=== PATIENT | female | born 1945 | race Caucasian/White ===

== ENCOUNTER 2017-06-14 14:51 | Emergency (ER) | payer MEDICARE | END 2017-06-14 16:20 | disposition home or self-care (01) | LOC: M ED 14:51 | DX: M25.512 Pain in left shoulder (principal); M19.012 Primary osteoarthritis, left shoulder; W22.8XXA Striking against or struck by other objects, initial encounter; Y92.009 Unspecified place in unspecified non-institutional (private) residence as the place of occurrence of the external cause; J44.9 Chronic obstructive pulmonary disease, unspecified; E03.9 Hypothyroidism, unspecified; M48.00 Spinal stenosis, site unspecified; F33.9 Major depressive disorder, recurrent, unspecified; Z79.899 Other long term (current) drug therapy; Z79.82 Long term (current) use of aspirin; Z98.890 Other specified postprocedural states | CPT/HCPCS: 73030 ==

== ENCOUNTER → 2017-11-23 | Outpatient (REF) | payer MEDICARE | LOC: M LAB REF 16:35 | DX: R30.0 Dysuria (principal) | CPT/HCPCS: 87186 ==

== ENCOUNTER → 2018-03-29 | Outpatient (REF) | payer MEDICARE | LOC: M LAB REF 16:20 | DX: R30.0 Dysuria (principal) | CPT/HCPCS: 87186 ==

== ENCOUNTER → 2018-06-19 | Outpatient (REF) | payer MEDICARE ==
[~2018-06-19] MED LIST: ACET500C4 PO; ALEV220C2 PO; ASPI325T25 PO; ESCI20TA PO; LEVO100T5 PO; PENN1SOL2 TD; ROSU5TAB4 PO; SPIR1CAP PO
[2018-06-19 20:11] LABS: PERCENT SATURATION 28.9 % (13.2-45.0)
== END ==
LOC: M LAB REF 17:35
PROVIDERS: ATTEND Internal Medicine
DX: D50.9 Iron deficiency anemia, unspecified (principal)

== ENCOUNTER 2019-01-01 17:31 | Emergency (ER) | payer MEDICARE ==
[~2019-01-01] VITALS: Ht 165.1 cm; Wt 84.5 kg
[~2019-01-01 17:31] MED LIST changes: +ACET1TAB55 PO; +AMLO25TA PO; +ASPI-255 PO; -ASPI325T25 PO; +B-12100010 PO; +FISH1000 PO; +LEVO88TA3 PO; +MULTCAP PO; +OYST1TAB PO; -ROSU5TAB4 PO; +ROSU5TAB5 PO; +VITA500C24 PO
[2019-01-01 18:41] LABS: BASO # 0.1 10^3/uL (0.0-0.2); BASO % 0.6 % (0.0-1.0); EOS # 0.2 10^3/uL (0.0-0.5); EOS % 2.2 % (0.0-3.0); HEMOGLOBIN 10.9 g/dl (12.0-15.5); LYMPH # 1.7 10^3/uL (1.5-5.0); LYMPH % 18.2 % (24.0-44.0); MEAN CORPUSCULAR HEMOGLOBIN 30.6 pg (27.0-33.0); MEAN CORPUSCULAR HGB CONC 32.1 g/dl (32.0-36.5); MEAN CORPUSCULAR VOLUME 95.5 fl (80.0-96.0); MONO # 0.7 10^3/uL (0.0-0.8); MONO % 7.3 % (0.0-5.0); NEUTROPHILS # 6.7 10^3/uL (1.5-8.5); NEUTROPHILS % 71.3 % (36.0-66.0); PLATELET COUNT, AUTOMATED 269 10^3/uL (150-450); RED BLOOD COUNT 3.56 10^6/uL (4.00-5.40); WHITE BLOOD COUNT 9.4 10^3/uL (4.0-10.0)
[2019-01-01 19:20] LABS: ALBUMIN 3.7 GM/DL (3.2-5.2); ALT/SGPT 16 U/L (12-78); BILIRUBIN,DIRECT < 0.1 MG/DL (0.0-0.2); BILIRUBIN,TOTAL 0.3 MG/DL (0.2-1.0); BLOOD UREA NITROGEN 27 MG/DL (7-18); CALCIUM LEVEL 9.2 MG/DL (8.8-10.2); CARBON DIOXIDE LEVEL 23 MEQ/L (21-32); CHLORIDE LEVEL 114 MEQ/L (98-107); CK-MB VALUE MASS 4.3 NG/ML (<3.6); CPK CREATINE PHOSPHOKINASE 106 U/L (26-192); CREATININE FOR GFR 1.15 MG/DL (0.55-1.30); FREE T4 1.04 NG/DL (0.76-1.46); GLOMERULAR FILTRATION RATE 49.2 (>39); GLUCOSE, FASTING 93 MG/DL (70-100); MB/CK RELATIVE INDEX 4.06 (< OR =4); POTASSIUM SERUM 3.6 MEQ/L (3.5-5.1); SODIUM LEVEL 143 MEQ/L (136-145); TOTAL PROTEIN 6.8 GM/DL (6.4-8.2); TROPONIN I < 0.02 NG/ML (< 0.10)
[2019-01-01 19:27] LABS: INR 1.14; PROTHROMBIN TIME 14.3 SECONDS (11.8-14.0)
[2019-01-01 19:28] LABS: PARTIAL THROMBOPLASTIN TIME 28.1 SECONDS (25.0-38.4)
--- NOTE | 2019-01-01 19:53 | REPVR ---
EXAM: CT Head Without Contrast EXAM DATE/TIME: 01/01/2019 7:25 PM CLINICAL HISTORY: 73 years old, female; Pain; Headache; Additional info: Fall, facial trauma TECHNIQUE: Imaging protocol: Computed tomography of the head without contrast. Radiation optimization: All CT scans at this facility use at least one of these dose optimization techniques: automated exposure control; mA and/or kV adjustment per patient size (includes targeted exams where dose is matched to clinical indication); or iterative reconstruction. COMPARISON: CT Head without contrast 09/17/2018 3:29 PM FINDINGS: Brain: No intracranial mass, mass effect or midline shift. No acute intracranial hemorrhage. No focal effacement of cortical sulci to indicate acute cortical infarct. Ventricles: Ventricles, cisterns and sulci are symmetrically prominent. Bones/joints: No calvarial fracture or destructive process. Sinuses: Imaged paranasal sinuses are clear. Mastoid air cells: Mastoid air cells are normally aerated. Orbits: Imaged orbits are unremarkable. Soft tissues: Mild asymmetric right forehead extracranial scalp swelling. IMPRESSION: Mild right forehead extracranial scalp swelling. No underlying acute intracranial abnormality. Electronically signed by: Benjamin Rose On 01/01/2019 19:53:24 PM
--- NOTE | 2019-01-01 19:55 | REPVR ---
EXAM: CT Cervical Spine Without Contrast EXAM DATE/TIME: 01/01/2019 7:25 PM CLINICAL HISTORY: 73 years old, female; Neck pain; Additional info: Fall, facial trauma TECHNIQUE: Imaging protocol: Computed tomography images of the cervical spine without contrast. Radiation optimization: All CT scans at this facility use at least one of these dose optimization techniques: automated exposure control; mA and/or kV adjustment per patient size (includes targeted exams where dose is matched to clinical indication); or iterative reconstruction. COMPARISON: CT Spine,cervical w/o contrast 10/01/2013 10:51 AM FINDINGS: Vertebrae: No traumatic segmental malalignment of cervical spine or craniocervical junction. Vertebral body height is maintained at all levels. No acute fracture. No destructive or blastic cervical spine osseous lesion. Discs/Spinal canal/Neural foramina: Intervertebral disc height is decreased at multiple levels, with typical degenerative pattern and associated endplate, articular pillar and uncovertebral spurs. No high-grade osseous spinal canal narrowing. Mild bilateral C3-4 and C5-6 osseous neural foraminal stenosis secondary to uncovertebral osteophytes Prevertebral Space: Prevertebral soft tissues demonstrate no asymmetry. Lungs: No concerning abnormality of the imaged lung apices. IMPRESSION: 1. No acute fracture or traumatic subluxation of the cervical spine. 2. Multilevel degenerative disc and articular pillar arthropathy. Electronically signed by: Benjamin Rose On 01/01/2019 19:55:17 PM
[2019-01-01] MEDS ORDERED: ADACEL/BOOSTRIX VACCINE (DIPHTH/PERTUSS/ACELL/TETANUS)0.5ML SYR (90715) IM ONE (20:00)
[2019-01-01] MEDS ORDERED: fentaNYL 100 MCG/2 ML INJECTION (J3010) IV ONE (20:00)
[2019-01-01] MEDS ORDERED: AMPICILLIN SOD/SULBACTAM SOD 3 GM in D5W MINI-BAG PLUS 100 ML IV ONE (20:00)
[2019-01-01] MEDS ORDERED: LIDOCAINE W/EPINEPHRINE 1% 20ML VIAL SC ONE (20:00)
--- NOTE | 2019-01-01 20:02 | REPVR ---
EXAM: CT Maxillofacial Without Contrast EXAM DATE/TIME: 01/01/2019 7:25 PM CLINICAL HISTORY: 73 years old, female; Injury or trauma; Fall; Initial encounter; Blunt trauma (contusions or hematomas); Lip/oral cavity; Upper; Additional info: Fall, facial trauma TECHNIQUE: Imaging protocol: Computed tomography images of the face without contrast. Radiation optimization: All CT scans at this facility use at least one of these dose optimization techniques: automated exposure control; mA and/or kV adjustment per patient size (includes targeted exams where dose is matched to clinical indication); or iterative reconstruction. COMPARISON: No relevant prior studies available. FINDINGS: Pre-maxillary soft tissue edema/hematoma is present. Mandible is intact and the TMJ's align normally. Maxilla, hard palate and pterygoid plates are intact. Zygomaticomaxillary complexes and zygomatic arches appear normal. Anterior displacement of the bases of the right and left central maxillary incisor is with question of subtle cortical fractures anteriorly. This is best seen on sagittal images. Paranasal sinuses show no acute fracture. Paranasal sinuses show no abnormal opacification. Mastoid air cells are normally aerated. No acute orbital fracture. Orbital soft tissues are unremarkable. No acute nasal bone or nasal septal fracture. Visualized skull base structures are unremarkable. Posterior nasopharynx soft tissues are symmetric. IMPRESSION: Premaxillary facial soft tissue swelling. Anterior displacement of the roots of the right and left maxillary central incisor is suggesting possible traumatic injury. No other evidence of acute facial fracture Electronically signed by: Benjamin Rose On 01/01/2019 20:01:45 PM
[2019-01-01 20:30] VITALS: BP 149/92
[2019-01-01] MEDS ORDERED: NON-325T5 PO (21:43)
[2019-01-01] MEDS ORDERED: AUGM875T28 PO (21:43)
[2019-01-01] MEDS ORDERED: PERI12LIQ PO (21:52)
--- NOTE | 2019-01-02 16:59 | ECGEPIP ---
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
== END 2019-01-01 22:36 | disposition home or self-care (01) ==
LOC: EDBD 17:31 → M ED 17:31
DX: S00.83XA Contusion of other part of head, initial encounter (principal); S01.511A Laceration without foreign body of lip, initial encounter; S02.5XXA Fracture of tooth (traumatic), initial encounter for closed fracture; W18.09XA Striking against other object with subsequent fall, initial encounter; R29.6 Repeated falls; Z79.899 Other long term (current) drug therapy; Z23 Encounter for immunization
CPT/HCPCS: 12001; 70450; 70486; 72125; 80048; 80076; 82550; 82553; 84439; 84443; 84484; 85025; 85610; 85730; 90471; 90715; 93005; 93041; 94760; 96365; 96366; 96375; 99285; J3010

== ENCOUNTER → 2019-10-31 | Outpatient (REF) | payer MEDICARE ==
[~2019-10-31] MED LIST changes: +AUGM875T28 PO; +NON-325T5 PO; +PERI12LIQ PO
== END ==
LOC: M LAB REF 17:29
PROVIDERS: ATTEND Internal Medicine
DX: R30.0 Dysuria (principal)

== ENCOUNTER → 2020-01-03 | Outpatient (REF) | payer MEDICARE ==
[2020-01-03 19:37] LABS: PERCENT SATURATION 21.7 % (13.2-45.0)
== END ==
LOC: M LAB REF 17:19
PROVIDERS: ATTEND Internal Medicine
DX: D50.9 Iron deficiency anemia, unspecified (principal)

== ENCOUNTER → 2020-06-09 | Outpatient (REF) | payer MEDICARE ==
[~2020-06-09] MED LIST changes: +ACET-838 PO; -ESCI20TA PO; +ESCI20TA16 PO; -NON-325T5 PO
== END ==
LOC: M LAB REF 16:24
PROVIDERS: ATTEND Internal Medicine
DX: R30.0 Dysuria (principal)

== ENCOUNTER → 2020-07-02 | Outpatient (REF) | payer MEDICARE ==
[2020-07-02 17:32] LABS: PERCENT SATURATION 22.6 % (13.2-45.0)
== END ==
LOC: M LAB REF 16:09
PROVIDERS: ATTEND Internal Medicine
DX: D50.9 Iron deficiency anemia, unspecified (principal)

== ENCOUNTER → 2020-09-18 | Outpatient (REF) | payer MEDICARE ==
[~2020-09-18] MED LIST changes: -ACET-838 PO; +ACET32TAB PO
== END ==
LOC: M LAB REF 16:33
PROVIDERS: ATTEND Internal Medicine
DX: N39.0 Urinary tract infection, site not specified (principal)

== ENCOUNTER → 2020-10-19 | Outpatient (REF) | payer MEDICARE ==
[2020-10-20 14:19] LABS: PERCENT SATURATION 13.7 % (13.2-45.0)
== END ==
LOC: M LAB REF 11:13
PROVIDERS: ATTEND Internal Medicine
DX: D50.9 Iron deficiency anemia, unspecified (principal)

== ENCOUNTER → 2020-10-28 | Outpatient (REF) | payer MEDICARE ==
[~2020-10-28] MED LIST changes: +ACET-910 PO; +ACET500C10 PO; +DAILTAB51 PO; +LEXA1TAB PO
== END ==
LOC: M LAB REF 16:59
PROVIDERS: ATTEND Internal Medicine
DX: M54.5 Low back pain (principal); N39.0 Urinary tract infection, site not specified

== ENCOUNTER 2020-10-30 15:15 | Inpatient (IN) | payer MEDICARE ==
[~2020-10-30] VITALS: Ht 165.1 cm; Wt 88.9 kg
[~2020-10-30 15:15] MED LIST changes: -ACET-910 PO; -ACET500C10 PO; -DAILTAB51 PO; -LEXA1TAB PO
[2020-10-30 16:26] LABS: BASO % 0.5 % (0.0-1.0); EOS # 0.2 10^3/uL (0.0-0.5); EOS % 2.9 % (0.0-3.0); HEMATOCRIT 32.3 % (36.0-47.0); HEMOGLOBIN 9.9 g/dl (12.0-15.5); LYMPH # 1.4 10^3/uL (1.5-5.0); LYMPH % 17.3 % (24.0-44.0); MEAN CORPUSCULAR HEMOGLOBIN 30.8 pg (27.0-33.0); MEAN CORPUSCULAR HGB CONC 30.7 g/dl (32.0-36.5); MEAN CORPUSCULAR VOLUME 100.6 fl (80.0-96.0); MONO # 0.8 10^3/uL (0.0-0.8); MONO % 9.2 % (2.0-8.0); NEUTROPHILS # 5.8 10^3/uL (1.5-8.5); NEUTROPHILS % 69.7 % (36.0-66.0); PLATELET COUNT, AUTOMATED 276 10^3/uL (150-450); RED BLOOD COUNT 3.21 10^6/uL (4.00-5.40); WHITE BLOOD COUNT 8.3 10^3/uL (4.0-10.0)
[2020-10-30 16:57] LABS: ALBUMIN 3.4 GM/DL (3.2-5.2); ALT/SGPT 14 U/L (12-78); BILIRUBIN,DIRECT < 0.1 MG/DL (0.0-0.2); BILIRUBIN,TOTAL 0.2 MG/DL (0.2-1.0); BLOOD UREA NITROGEN 21 MG/DL (7-18); CALCIUM LEVEL 8.4 MG/DL (8.8-10.2); CARBON DIOXIDE LEVEL 24 MEQ/L (21-32); CHLORIDE LEVEL 113 MEQ/L (98-107); CREATININE FOR GFR 1.16 MG/DL (0.55-1.30); GLOMERULAR FILTRATION RATE 48.5 (>39); GLUCOSE, FASTING 106 MG/DL (70-100); LIPASE 177 U/L (73-393); SODIUM LEVEL 141 MEQ/L (136-145); TOTAL PROTEIN 6.3 GM/DL (6.4-8.2)
[2020-10-30] MEDS ORDERED: CIPROFLOXACIN 500MG TABLET PO SCH (18:00)
--- NOTE | 2020-10-30 19:13 | REPVR ---
PROCEDURE INFORMATION: Exam: CT Abdomen And Pelvis Without Contrast Exam date and time: 10/30/2020 6:05 PM Age: 75 years old Clinical indication: Pain; Other: Low back; Additional info: Low back pain, hematuria-microscopic TECHNIQUE: Imaging protocol: Computed tomography of the abdomen and pelvis without contrast. Radiation optimization: All CT scans at this facility use at least one of these dose optimization techniques: automated exposure control; mA and/or kV adjustment per patient size (includes targeted exams where dose is matched to clinical indication); or iterative reconstruction. COMPARISON: CT Pelvis without contrast 04/03/2015 12:54 PM FINDINGS: Limitations: Absence of intravenous contrast limits evaluation of vascular and visceral structures. Lungs: Calcified probable granulomas are seen in the lungs. Liver: There are no focal liver lesions. Gallbladder and bile ducts: There is a 2 cm calcified gallstone. Pancreas: The pancreas is normal. Spleen: The spleen is unremarkable. Adrenal glands: The adrenal glands are unremarkable. Kidneys and ureters: The right kidney is unremarkable. There is a punctate calcification in left kidney which is likely arterial and an exophytic density measuring 8.2 mm which is poorly assessed. There is also a low dense possible parapelvic cyst. There is an irregular 4.2 mm calculus in the proximal left ureter just below the ureteropelvic junction without left hydronephrosis or perinephric stranding. Stomach and bowel: There is no evidence of intestinal obstruction. Appendix: No evidence of appendicitis. Intraperitoneal space: Unremarkable. No free air. No significant fluid collection. Vasculature: There is no evidence of an infrarenal abdominal aortic aneurysm. There is mild to moderate atherosclerotic calcification. Lymph nodes: Unremarkable. No enlarged lymph nodes. Urinary bladder: There is a minimal amount of radiodense material layering in the dependent portion of the urinary bladder which may be blood or calcifications. Reproductive: Unremarkable as visualized. Bones/joints: No acute fracture. Grade 1 anterior spondylolisthesis of L4 on L5 likely due to subluxation of the degenerated facet joints. This is a stable finding in comparison to the lumbar spine CT. Soft tissues: Unremarkable. IMPRESSION: 1. There is 1 large gallstone measuring 2 cm. 2. There is a 4.2 mm calculus in the proximal left ureter without associated hydronephrosis or perinephric stranding. There is an additional low dense region- parapelvic which may represent a cyst or other low-dense parenchymal lesion. An additional punctate calcification may be within the renal collecting system or arterial. There is an 8.2 mm poorly assessed exophytic lesion. These lesions could be further assessed by renal protocol CT or MRI. The hematuria is likely due to the calculus in the proximal left ureter. Electronically signed by: Andree Henry On 10/30/2020 19:12:49 PM
[2020-10-30] MEDS ORDERED: NS 500 ML IV ONE (19:55)
[2020-10-30] MEDS ORDERED: KETOROLAC 30 MG/ML 1ML VIAL IV ONE (19:55)
[2020-10-30] MEDS ORDERED: ONDANSETRON 4MG/2ML VIAL IV PRN (22:00)
[2020-10-30] MEDS ORDERED: ACET-910 PO (22:29)
[2020-10-30] MEDS ORDERED: ACET500C10 PO (22:29)
[2020-10-30] MEDS ORDERED: DAILTAB51 PO (22:29)
[2020-10-30] MEDS ORDERED: LEXA1TAB PO (22:29)
[2020-10-30] MEDS ORDERED: MORPHINE 2 MG/ML 1ML VIAL (J2270) IV PRN (23:00)
[2020-10-31 00:55] VITALS: BP 164/89
[2020-10-31] MEDS: NS 1,000 ML IV SCH ×2 (01:05→09:13)
--- NOTE | 2020-10-31 01:54 | HPEPDOC ---
[facility] Medical History & Physical Date of Admission Oct 30, 2020 Date of Service: Oct 30, 2020 Attending Physician: NOMI JOHNSTON MD MPH History and Physical CHIEF COMPLAINT: low back pain HISTORY OF PRESENT ILLNESS: Ms. Laughlin is a 75 year old female w/ history of multiple UTIs who was sent to the ED by her PCM for UA concerning for renal stone. Patient reports that 3 days ago she woke up with low back pain and urinary frequency which made her concerned for UTI or kidney infection. She was able to perform a UA with her PCM and was empirically started on Levaquin. She states that this morning she received a call from her PCMs office stating her UA was also concerning for renal stone as there was blood in the study. Patient has had prior history of nephrolithiasis. She has not experienced localizing flank pain or fevers/chills and she has no nausea, vomiting, or stool changes. Aside from increased urinary frequency she has also noticed a strong odor to her urine and generalized mal aise but she denies dysuria which is something she typically gets with her UTIS. ROS: A 10 point ROS was obtained and aside from positives noted above was unremarkable PAST MEDICAL PROBLEMS: Remote history of renal stones Recurrent UTIs Urinary incontinence Spinal stenosis Hypothyroidism Depression Hyperlipidemia COPD not currently on medications HTN Histoplasmosis ? 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 HEENT: AT/NC, dry mucosa NECK: supple HEART: RRR no M/R/G, no peripheral edema, DPP 2+ bilaterally LUNGS: CTAB ABDOMEN: soft, non tender, non distended, active bowel sounds : No CVA tenderness SKIN: warm, dry MSK: moving all extremities NEURO: AOx3, strength is 4/5 but symmetric, faint bobbing head tremor PSYCH: euthymic LABS: reviewed RADIOLOGY: CT abd/pelvis: IMPRESSION: 1. There is 1 large gallstone measuring 2 cm. 2. There is a 4.2 mm calculus in the proximal left ureter without associated hydronephrosis or perinephric stranding. There is an additional low dense region- parapelvic which may represent a cyst or other low-dense parenchymal lesion. An additional punctate calcification may be within the renal collecting system or arterial. There is an 8.2 mm poorly assessed exophytic lesion. These lesions could be further assessed by renal protocol CT or MRI. The hematuria is likely due to the calculus in the proximal left ureter. MICROBIOLOGY: Patient has prior urine cultures each demonstrating a different pathogen including e. coli, citrobacter, and staph epi. Urine culture pending ASSESSMENT: Ms. Laughlin is a 75 year old female with recurrent UTI and remote renal stone history presenting with 3 days of generalized low back pains and symptoms c/w her UTIs now with CT stone protocol showing 4.2mm left proximal ureteral calculus for which Urology will see patient and consider doing stone retrieval and stent placement in the morning. PLAN: # ureteral stone: Patients presentation without fevers or true flank pain is not fully c/w pyelonephritis, however she does have evidence of a UTI in the setting of ureteral stone. Urology was consulted and recommends admission with possible OR in the morning. Will treat UTI with Meds: Tamsulosin for MET Levaquin 250mg IV Q24 to start tomorrow as patient has already had Cipro Toradol PRN Zofran PRN Morphine PRN severe pain Follow urine culture results Touch bases with Urology in the morning NPO after midnight with maintenance fluids # HTN: Patient was moderately hypertensive in the ED with poorly controlled pain. Since providing adequate pain relief with Toradol, patients BP has improved. She is not currently on antihypertensives, but does have a remote history of HTN. Would consider starting her on maintenance BP medications following possible stenting/stone retrieval. Meds: Consider hydralazine PRN Manage pain # macrocytic anemia: Patient has chronic anemia which is at her baseline. Vitamin B 12 level obtained last week was WNL. Iron was slightly low. Will initiate iron supplement and obtain folate level to complete macrocytosis evaluation. Meds: Iron supplement daily # Chronic back pain: Patient has acute on chronic back pain, this is in the setting of ureteral stone. Will encourage mobilization and have requested physical therapy referral. Meds: None # Hypothyroidism: No active issues today, will continue home medication Meds: Synthroid # Depression: Euthymic, will continue Lexapro being mindful of potential for QT prolongation in the setting of Levaquin use. Meds: Lexapro QHS # HLD: No active issues, continue crestor Meds: Rosuvastatin # COPD history: Patient is not currently on breathing treatments but has no e/o exacerbation or bronchial irritation on exam. Unclear if Acetazolamide is used for her COPD. Patient is unclear on reason she takes Acetazolamide. Meds: Pulmonary toilet DISPO: med surg, obs DIET: NPO after MN DVT PROPHY: holding chemical prophy pending possible urological procedure DISCHARGE: pending improvement in pain CONSULTS: PT, Urology Vital Signs Vital Signs Date Time Temp Pulse Resp B/P (MAP) Pulse Ox O2 Delivery O2 Flow Rate FiO2 10/31/20 00:37 96.8 68 18 166/82 (110) 98 Room Air Laboratory Data Labs 24H Laboratory Tests 2 10/30/20 16:15: Immature Granulocyte % (Auto) 0.4, Neutrophils (%) (Auto) 69.7H, Lymphocytes (%) (Auto) 17.3L, Monocytes (%) (Auto) 9.2H, Eosinophils (%) (Auto) 2.9, Basophils (%) (Auto) 0.5, Neutrophils # (Auto) 5.8, Lymphocytes # (Auto) 1.4L, Monocytes # (Auto) 0.8, Eosinophils # (Auto) 0.2, Basophils # (Auto) 0.0, Nucleated Red Blood Cells % (auto) 0.0, Anion Gap 4L, Glomerular Filtration Rate 48.5, Calcium Level 8.4L, Total Bilirubin 0.2, Direct Bilirubin < 0.1, Aspartate Amino Transf (AST/SGOT) 18, Alanine Aminotransferase (ALT/SGPT) 14, Alkaline Phosphatase 58, Total Protein 6.3L, Albumin 3.4, Albumin/Globulin Ratio 1.2, Lipase 177 10/30/20 17:56: Urine Color YELLOW, Urine Appearance CLOUDYH, Urine pH 6.0, Urine Specific [place] 1.014, Urine Protein NEGATIVE, Urine Glucose (UA) NEGATIVE, Urine Ketones NEGATIVE, Urine Blood 3+H, Urine Nitrite NEGATIVE, Urine Bilirubin NEGATIVE, Urine Urobilinogen 0.2, Urine Leukocyte Esterase 1+H, Urine WBC (Auto) 21H, Urine RBC (Auto) TNTCH, Urine Hyaline Casts (Auto) 0, Urine Bacteria (Auto) NEGATIVE, Urine Squamous Epithelial Cells 4, Urine Mucus (Auto) SMALL, Urine Sperm (Auto) 10/30/20 22:14: Coronavirus (COVID-19)(PCR) NEGATIVE CBC/BMP Laboratory Tests 10/30/20 16:15 Microbiology Microbiology 10/30/20 Urine Culture, Received Pending Home Medications Scheduled Acetaminophen (Acetaminophen) 325 Mg Tablet, 650 MG PO QHS Acetazolamide (Acetazolamide ER) 500 Mg Capsule.er, 500 MG PO BID Ascorbic Acid (Vitamin C) 500 Mg Capsule, 500 MG PO DAILY Aspirin (Aspirin EC) 325 Mg Tabec, 325 MG PO DAILY Calcium Carbonate (Calcium) 500 Mg Tablet, 500 MG PO DAILY Escitalopram Oxalate (Lexapro) 10 Mg Tablet, 10 MG PO QHS Levothyroxine Sodium (Levothyroxine Sodium) 88 Mcg Tablet, 88 MCG PO DAILY Multivitamin (Daily [place]) 1 Each Tablet, 1 TAB PO DAILY [place]-3 Fatty Acids/Fish Oil (Fish Oil 1,000 mg Capsule) 1 Each Capsule, 1 CAP PO DAILY Rosuvastatin Calcium (Rosuvastatin Calcium) 5 Mg Tab, 5 MG PO QHS Scheduled PRN Acetaminophen (Acetaminophen) 325 Mg Tablet, 650 MG PO Q4-6HP PRN for PAIN Allergies Coded Allergies: No Known Allergies (Unverified , 09/17/18) A-FIB/CHADSVASC A-FIB History Current/History of A-Fib/PAF?: No Current PO Anticoag Therapy: No Age/Risk Factor Scoring CHADSVASC: CHADSVASC Response (Comments) Value Age Risk Factor Age >/= 75 years old 2 Gender Risk Factor Female 1 Hx of CHF No 0 Hx of HTN Yes 1 Hx of Stroke/TIA/or VTE No 0 Hx of Diabetes No 0 Hx of Vascular Disease No 0 Total 4 Treatment Treatment ordered: Holding Other Reason Anticoagulant not given: Recent/upcomin procedure NOMI JOHNSTON MD MPH Oct 31, 2020 01:54
[2020-10-31] MEDS: KETOROLAC 30 MG/ML 1ML VIAL IV PRN ×2 (02:44→09:11)
[2020-10-31] MEDS: ROSUVASTATIN 10 MG TAB (CRESTOR) PO SCH ×2 (02:46→21:31)
[2020-10-31] MEDS: ESCITALOPRAM OXALATE 10 MG TAB (LEXAPRO) PO SCH ×2 (02:47→21:31)
[2020-10-31] MEDS: acetaZOLAMIDE 500 MG ER CAP PO SCH ×3 (02:47→21:31)
[2020-10-31 06:00] VITALS: BP 161/78
[2020-10-31 07:26] LABS: HEMATOCRIT 29.2 % (36.0-47.0); MEAN CORPUSCULAR HEMOGLOBIN 30.8 pg (27.0-33.0); MEAN CORPUSCULAR HGB CONC 30.8 g/dl (32.0-36.5); PLATELET COUNT, AUTOMATED 245 10^3/uL (150-450); RED BLOOD COUNT 2.92 10^6/uL (4.00-5.40)
[2020-10-31 07:56] LABS: BLOOD UREA NITROGEN 20 MG/DL (7-18); CARBON DIOXIDE LEVEL 19 MEQ/L (21-32); CHLORIDE LEVEL 117 MEQ/L (98-107); CREATININE FOR GFR 1.11 MG/DL (0.55-1.30); GLUCOSE, FASTING 93 MG/DL (70-100); POTASSIUM SERUM 3.7 MEQ/L (3.5-5.1); SODIUM LEVEL 144 MEQ/L (136-145)
[2020-10-31] MEDS: LEVOTHYROXINE 88MCG TABLET (0.088 MG) PO SCH (09:11)
[2020-10-31] MEDS: TAMSULOSIN 0.4 MG CAP PO SCH (09:11)
[2020-10-31] MEDS: IRON POLYSAC (NIFEREX) 150 MG CAP PO SCH (09:11)
--- NOTE | 2020-10-31 13:20 | SMCUROLCON ---
Urology Consultation General Date of Consultation 10/31/20 Reason For Consultation This patient is seen for Nrphrolithisasis. History of Present Illness This is a 75 y/o F w/ a PMH significant for kidney stones (several years ago), spinal stenosis, hypothyroidism, depression, HL, COPD, and HTN, admitted for an obstructing L ureteral stone. The patient noted the acute onset of severe L lower back pain yesterday which prompted her to come to the ER. She denied nausea or vomiting. She denied fevers or chills. She denied dysuria. A noncontrast CT A/P done in the ER which I reviewed. It was notable for mild L hydronephrosis 2/2 an obstructing 3mm proximal ureteral stone. She notes that she she has been in the hospital she has felt much better. Her pain is controlled w/ toradol. Past Medical History Medical History see HPI Surgical Hstory Tonsillectomy Oophorectomy Medications Current Medications Current Medications Medications (Trade) Dose Ordered Sig/Paulina Route PRN Reason Start Time Stop Time Status Last Admin Dose Admin Acetazolamide (Diamox Sequels) 500 mg BID PO 10/30/20 21:00 10/31/20 09:11 Ciprofloxacin (Cipro) 500 mg BID@06,18 PO 10/30/20 18:00 10/31/20 01:28 DC 10/30/20 23:45 Escitalopram Oxalate (Lexapro) 10 mg QHS PO 10/30/20 21:00 10/31/20 02:47 Home Med (Med Rec Complete!) ASDIRECTED XX 10/30/20 22:35 10/30/20 22:35 DC Iron (Niferex) 150 mg DAILY PO 10/31/20 09:00 10/31/20 09:11 Ketorolac Tromethamine (ToRADol) 15 mg Q6H PRN IV PAIN LEVEL 1-6 10/30/20 22:00 11/04/20 21:59 10/31/20 09:11 Levofloxacin 250 mg/IV Miscellaneous Supplies 50 ml @ 50 mls/hr Q24H IV 10/31/20 21:00 Levothyroxine Sodium (Synthroid) 88 mcg DAILY PO 10/31/20 09:00 10/31/20 09:11 Morphine Sulfate (Morphine Sulfate Inj) 1 mg Q4H PRN IV PAIN LEVEL 7-10 10/30/20 23:00 Ondansetron HCl (ZOFRAN INJection) 4 mg Q6H PRN IV NAUSEA 10/30/20 22:00 Rosuvastatin Calcium (Crestor) 5 mg QHS PO 10/30/20 21:00 10/31/20 02:46 Sodium Chloride 1,000 ml @ 110 mls/hr Q9H6M IV 10/31/20 00:00 10/31/20 09:13 Tamsulosin HCl (Flomax) 0.4 mg DAILY PO 10/31/20 09:00 10/31/20 09:11 Allergies Allergies: Coded Allergies: No Known Allergies (Unverified , 09/17/18) Review of Systems Constitutional: Denies: Fever, Chills, Sweats, Weakness, Malaise Skin: Denies: Rash, Lesions, Breakdown, Nail Changes Pulmonary: Denies: Dyspnea Cardiovascular: Denies Chest Pain, Denies Palpitations Gastrointestinal: Denies: Nausea, Vomiting, Abdominal Pain Genitourinary: Denies: Dysuria, Frequency Musculoskeletal: Reports: Back Pain (left lower back) Neurological: Denies: Weakness, Numbness, Incoordination, Change in Speech Psych: Reports: Mood Normal; Denies: Anxiety, Depression Physical Examination General Exam: Alert, Cooperative, No Acute Distress Chest Exam: Normal air movement Heart Exam: Rate Normal Abdomen Exam: Soft; No: Tenderness Skin Exam: Nl turgor and temperature Neuro Exam: Normal Speech Psych Exam: Mental status NL, Mood NL Vital Signs/I&O Vital Signs Date Time Temp Pulse Resp B/P (MAP) Pulse Ox O2 Delivery O2 Flow Rate FiO2 10/31/20 06:00 97.3 70 19 161/78 (105) 96 Room Air I&O- Last 24 Hours up to 6 AM 10/31/20 06:00 Intake Total 500 ml Output Total 25 ml Balance 475 ml Laboratory Data 24H Labs Laboratory Tests 2 10/30/20 16:15: Immature Granulocyte % (Auto) 0.4, Neutrophils (%) (Auto) 69.7H, Lymphocytes (%) (Auto) 17.3L, Monocytes (%) (Auto) 9.2H, Eosinophils (%) (Auto) 2.9, Basophils (%) (Auto) 0.5, Neutrophils # (Auto) 5.8, Lymphocytes # (Auto) 1.4L, Monocytes # (Auto) 0.8, Eosinophils # (Auto) 0.2, Basophils # (Auto) 0.0, Nucleated Red Blood Cells % (auto) 0.0, Anion Gap 4L, Glomerular Filtration Rate 48.5, Calcium Level 8.4L, Total Bilirubin 0.2, Direct Bilirubin < 0.1, Aspartate Amino Transf (AST/SGOT) 18, Alanine Aminotransferase (ALT/SGPT) 14, Alkaline Phosphatase 58, Total Protein 6.3L, Albumin 3.4, Albumin/Globulin Ratio 1.2, Lipase 177 10/30/20 17:56: Urine Color YELLOW, Urine Appearance CLOUDYH, Urine pH 6.0, Urine Specific [place] 1.014, Urine Protein NEGATIVE, Urine Glucose (UA) NEGATIVE, Urine Ketones NEGATIVE, Urine Blood 3+H, Urine Nitrite NEGATIVE, Urine Bilirubin NEGATIVE, Urine Urobilinogen 0.2, Urine Leukocyte Esterase 1+H, Urine WBC (Auto) 21H, Urine RBC (Auto) TNTCH, Urine Hyaline Casts (Auto) 0, Urine Bacteria (Auto) NEGATIVE, Urine Squamous Epithelial Cells 4, Urine Mucus (Auto) SMALL, Urine Sperm (Auto) 10/30/20 22:14: Coronavirus (COVID-19)(PCR) NEGATIVE 10/31/20 07:10: Nucleated Red Blood Cells % (auto) 0.0, Anion Gap 8, Glomerular Filtration Rate 51.0, Calcium Level 8.0L, Magnesium Level 2.0 CBC/BMP Laboratory Tests 10/30/20 16:15 10/31/20 07:10 Microbiology Microbiology 10/30/20 Urine Culture - Final, Complete Assessment This is a 75 y/o F admitted for L flank pain from an obstructing 3mm proximal L ureteral stone. Her pain is controlled w/ toradol. Her urine culture is negative and there is no other sign of infection w/ a normal WBC and no fevers. Her Cr is at baseline at 1.1. I do not think she needs surgery at this time. I have recommended a trial of passage, which the patient is in agreement with. Plan - no plan for surgery at this time - patient may have a regular diet - she is ok for discharge from the urologic standpoint - recommend patient take flomax daily - patient instructed on the importance of hydrating well w/ water to help pass the stone - will have my office arrange a f/u appt so that she is seen w/i the next 2-3 wks PETEY ALVARADO MD Oct 31, 2020 13:20
[2020-10-31 14:00] VITALS: BP 166/86
[2020-10-31] MEDS ORDERED: LEVO250T12 PO (14:08)
[2020-10-31] MEDS ORDERED: OXYC1TAB23 PO (14:08)
[2020-10-31] MEDS ORDERED: FLOM0.4C39 PO (14:08)
--- NOTE | 2020-10-31 15:18 | IPNPDOC ---
Text Note Date of Service The patient was seen on 10/31/20. NOTE Subjective: Patient was seen and examined at bedside today. She reports her pain from her kidney stone is far better and improved than when she came in. He denies having any nausea or vomiting, blood in her urine, constipation. Objective: General: Patient is alert oriented x3 was sitting in chair, no apparent distress. Cardiac: S1 and S2 normal, regular rate and rhythm, no murmurs appreciated. Respiration: Bilateral clear breath sounds appreciated, no wheezes noted. Abdomen: Soft, no tenderness on palpation in all 4 quadrants. Positive bowel sounds. : No CVA tenderness bilaterally. Labs: Vitals: Temperature 97.3, HR 70, RR 19, BP 161/78, 96% on room air CBC: WBC 8, Hb 9, HCT 29.2, platelets 245. BMP: NA 144, K3.7, CL 117, HCO3 19, BUN 20, CR 1.11, glucose 93. Imaging: CT abdomen pelvis: Impression:1. There is 1 large gallstone measuring 2 cm. 2. There is a 4.2 mm calculus in the proximal left ureter without associated hydronephrosis or perinephric stranding. There is an additional low dense region- parapelvic which may represent a cyst or other low-dense parenchymal lesion. An additional punctate calcification may be within the renal collecting system or arterial. There is an 8.2 mm poorly assessed exophytic lesion. These lesions could be further assessed by renal protocol CT or MRI. The hematuria is likely due to the calculus in the proximal left ureter. Assessment: 75-year-old female with history of recurrent UTI and renal stones presented to the ED with 3-day history of low back pain and symptoms of UTI on further e valuation in the ED CT scan showed 4.2 mm left proximal ureteral calculus for which urology was consulted. Plan: Ureteral stone: Patient reports her pain is resolving with the medications. -Dr. Dickens on-call urologist did come and see her, given the stone is small and patient's resolution pain pointed towards that stone is not obstructed and the medical management can be continued for the stone to be passed. As per urology she does not need any procedure as the stone is not obstructed -We will continue her on tamsulosin. -She was started on Levaquin we will continue that. We will continue tramadol and Zofran as needed. We will give her percocet for severe pain as needed; DC Morphine Hypertension: -Patient had elevated blood pressure on presentation most likely due to the pain. -Will start Amlodipine Chronic back pain: -Patient has acute on chronic back pain. -Her acute pain is due to ureteral stone. -Pain management morphine and tramadol. Hypothyroidism: -We will continue home medication Synthyroid Depression: -We will continue home medication Lexapro. HDL: -We will continue statin. Disposition: -Patient is cleared medically to go home -ALC status VS,Fishbone, I+O VS, Fishbone, I+O Laboratory Tests 10/30/20 16:15 10/31/20 07:10 Vital Signs Date Time Temp Pulse Resp B/P (MAP) Pulse Ox O2 Delivery O2 Flow Rate FiO2 10/31/20 06:00 97.3 70 19 161/78 (105) 96 Room Air I&O- Last 24 Hours up to 6 AM 10/31/20 06:00 Intake Total 500 ml Output Total 25 ml Balance 475 ml GME ATTESTATION GME ATTESTATION My faculty preceptor for this patient encounter was physically present during the encounter and was fully available. All aspects of the patient interview, examination, medical decision making process, and medical care plan development were reviewed and approved by the faculty preceptor. The faculty preceptor is aware and concurs with the plan as stated in the body of this note and will attest to such by his/her cosignature. ATTENDING NOTE I, Purnima Henry, have independently examined this patient and performed my own physical exam, as well as reviewed the documentation and edited where necessary. I have discussed in detail with the resident / student the findings and plan of treatment as documented by the resident / student and edited their note. I agree with their findings and treatment plan and have edited their documentation. I will continue to follow the patient during this hospital stay. - Patient was seen and evaluated the bedside - Patient reported clinical improvement of her symptoms - Vitals are stable - Physical was unremarkable - Lab work did not reveal any leukocytosis or kidney injury - Case was discussed with urology; recommended that patient can be discharged home with Flomax and antibiotics - no intervention planned - However, physical therapy has recommended patient only go to rehabilitation on discharge - Patient will be transitioned inpatient status from observation - Since patient is medically cleared, she'll be transitioned to ALC status now CODE STATUS: - Patient has voiced that she would not want chest compressions, however, would want a trial of intubation if required - Patient is DNR with trial of intubation Tom Jacobs MD Oct 31, 2020 15:18 PURNIMA HENRY MD Oct 31, 2020 15:21
[2020-10-31] MEDS: LevoFLOXacin 250 MG TABLET PO SCH (16:51)
[2020-10-31] MEDS ORDERED: amLODIPine 5 MG TAB PO ONE (17:20)
[2020-10-31] MEDS ORDERED: PILL CUTTER 1 EACH XX PRN (20:20)
[2020-10-31] MEDS ORDERED: LevoFLOXacin IV 250 MG in IV 1 EA IV SCH (21:00)
[2020-10-31 22:00] VITALS: BP 162/71
[2020-11-01 06:00] VITALS: BP 152/82
[2020-11-01 06:17] LABS: HEMATOCRIT 28.9 % (36.0-47.0); HEMOGLOBIN 8.8 g/dl (12.0-15.5); MEAN CORPUSCULAR HGB CONC 30.4 g/dl (32.0-36.5); MEAN CORPUSCULAR VOLUME 101.8 fl (80.0-96.0); PLATELET COUNT, AUTOMATED 250 10^3/uL (150-450); RED BLOOD COUNT 2.84 10^6/uL (4.00-5.40); WHITE BLOOD COUNT 7.3 10^3/uL (4.0-10.0)
[2020-11-01 06:38] LABS: CALCIUM LEVEL 7.9 MG/DL (8.8-10.2); CREATININE FOR GFR 1.13 MG/DL (0.55-1.30); POTASSIUM SERUM 3.3 MEQ/L (3.5-5.1)
[2020-11-01] MEDS ORDERED: POTASSIUM CHLORIDE 10 MEQ SR TABLET PO ONE (07:15)
[2020-11-01] MEDS: acetaZOLAMIDE 500 MG ER CAP PO SCH ×2 (08:25→21:02)
[2020-11-01] MEDS: amLODIPine 5 MG TAB PO SCH (08:25)
[2020-11-01] MEDS: TAMSULOSIN 0.4 MG CAP PO SCH (08:25)
[2020-11-01] MEDS: IRON POLYSAC (NIFEREX) 150 MG CAP PO SCH (08:25)
[2020-11-01] MEDS: LEVOTHYROXINE 88MCG TABLET (0.088 MG) PO SCH (08:29)
[2020-11-01] MEDS: LevoFLOXacin 250 MG TABLET PO SCH (16:45)
[2020-11-01] MEDS: ROSUVASTATIN 10 MG TAB (CRESTOR) PO SCH (21:02)
[2020-11-01] MEDS: ESCITALOPRAM OXALATE 10 MG TAB (LEXAPRO) PO SCH (21:02)
[2020-11-02 06:00] VITALS: BP 144/65
[2020-11-02 06:03] LABS: HEMATOCRIT 28.3 % (36.0-47.0); HEMOGLOBIN 8.6 g/dl (12.0-15.5); MEAN CORPUSCULAR HEMOGLOBIN 30.9 pg (27.0-33.0); MEAN CORPUSCULAR HGB CONC 30.4 g/dl (32.0-36.5); MEAN CORPUSCULAR VOLUME 101.8 fl (80.0-96.0); PLATELET COUNT, AUTOMATED 248 10^3/uL (150-450); RED BLOOD COUNT 2.78 10^6/uL (4.00-5.40); WHITE BLOOD COUNT 6.6 10^3/uL (4.0-10.0)
[2020-11-02 06:23] LABS: CALCIUM LEVEL 7.6 MG/DL (8.8-10.2); CREATININE FOR GFR 1.04 MG/DL (0.55-1.30); POTASSIUM SERUM 3.8 MEQ/L (3.5-5.1)
[2020-11-02] MEDS: LEVOTHYROXINE 88MCG TABLET (0.088 MG) PO SCH (09:29)
[2020-11-02] MEDS: TAMSULOSIN 0.4 MG CAP PO SCH (09:29)
[2020-11-02] MEDS: amLODIPine 5 MG TAB PO SCH (09:30)
[2020-11-02] MEDS: acetaZOLAMIDE 500 MG ER CAP PO SCH ×2 (09:30→21:14)
[2020-11-02] MEDS: IRON POLYSAC (NIFEREX) 150 MG CAP PO SCH (09:30)
[2020-11-02] MEDS: SENOKOT S TAB PO PRN (09:33)
[2020-11-02 11:29] LABS: FOLATE > 24.0 NG/ML (>5.4)
[2020-11-02] MEDS: LevoFLOXacin 250 MG TABLET PO SCH (17:18)
[2020-11-02 20:29] VITALS: BP 187/79
[2020-11-02] MEDS: ROSUVASTATIN 10 MG TAB (CRESTOR) PO SCH (21:14)
[2020-11-02] MEDS: ESCITALOPRAM OXALATE 10 MG TAB (LEXAPRO) PO SCH (21:14)
[2020-11-03 05:58] VITALS: BP 148/68
[2020-11-03 06:00] LABS: HEMATOCRIT 28.7 % (36.0-47.0); HEMOGLOBIN 8.6 g/dl (12.0-15.5); MEAN CORPUSCULAR HEMOGLOBIN 30.8 pg (27.0-33.0); MEAN CORPUSCULAR VOLUME 102.9 fl (80.0-96.0); PLATELET COUNT, AUTOMATED 258 10^3/uL (150-450); RED BLOOD COUNT 2.79 10^6/uL (4.00-5.40); WHITE BLOOD COUNT 7.5 10^3/uL (4.0-10.0)
[2020-11-03 06:17] LABS: CALCIUM LEVEL 7.8 MG/DL (8.8-10.2); CREATININE FOR GFR 1.07 MG/DL (0.55-1.30); GLOMERULAR FILTRATION RATE 53.2 (>39); MAGNESIUM LEVEL 2.1 MG/DL (1.8-2.4); POTASSIUM SERUM 3.6 MEQ/L (3.5-5.1)
[2020-11-03] MEDS: amLODIPine 5 MG TAB PO SCH (09:18)
[2020-11-03] MEDS: TAMSULOSIN 0.4 MG CAP PO SCH (09:18)
[2020-11-03] MEDS: IRON POLYSAC (NIFEREX) 150 MG CAP PO SCH (09:18)
[2020-11-03] MEDS: acetaZOLAMIDE 500 MG ER CAP PO SCH ×2 (09:18→19:45)
[2020-11-03] MEDS: LEVOTHYROXINE 88MCG TABLET (0.088 MG) PO SCH (09:21)
[2020-11-03 14:00] VITALS: BP 159/66
[2020-11-03 15:51] VITALS: BP 173/78
[2020-11-03] MEDS: LevoFLOXacin 250 MG TABLET PO SCH (17:15)
[2020-11-03 17:22] VITALS: BP_SYST 165; BP_SYST 168; BP_DIAS 74
[2020-11-03] MEDS: ESCITALOPRAM OXALATE 10 MG TAB (LEXAPRO) PO SCH (19:45)
[2020-11-03] MEDS: ROSUVASTATIN 10 MG TAB (CRESTOR) PO SCH (19:45)
[2020-11-04 06:00] VITALS: BP 161/68
[2020-11-04 06:15] LABS: HEMOGLOBIN 8.2 g/dl (12.0-15.5); MEAN CORPUSCULAR HEMOGLOBIN 31.2 pg (27.0-33.0); MEAN CORPUSCULAR HGB CONC 30.4 g/dl (32.0-36.5); MEAN CORPUSCULAR VOLUME 102.7 fl (80.0-96.0); PLATELET COUNT, AUTOMATED 258 10^3/uL (150-450); RED BLOOD COUNT 2.63 10^6/uL (4.00-5.40); WHITE BLOOD COUNT 7.4 10^3/uL (4.0-10.0)
[2020-11-04 06:34] LABS: CALCIUM LEVEL 7.6 MG/DL (8.8-10.2); CREATININE FOR GFR 1.03 MG/DL (0.55-1.30); GLOMERULAR FILTRATION RATE 55.6 (>39); MAGNESIUM LEVEL 2.1 MG/DL (1.8-2.4); POTASSIUM SERUM 3.4 MEQ/L (3.5-5.1)
[2020-11-04] MEDS: acetaZOLAMIDE 500 MG ER CAP PO SCH ×2 (08:42→20:20)
[2020-11-04] MEDS: IRON POLYSAC (NIFEREX) 150 MG CAP PO SCH (08:42)
[2020-11-04] MEDS: SENOKOT S TAB PO PRN (08:42)
[2020-11-04] MEDS: LEVOTHYROXINE 88MCG TABLET (0.088 MG) PO SCH (08:42)
[2020-11-04] MEDS: TAMSULOSIN 0.4 MG CAP PO SCH (08:42)
[2020-11-04] MEDS: amLODIPine 5 MG TAB PO SCH (08:46)
[2020-11-04] MEDS: LevoFLOXacin 250 MG TABLET PO SCH (15:42)
[2020-11-04] MEDS: PERCOCET 5MG/325MG TAB PO PRN (20:20)
[2020-11-04] MEDS: ESCITALOPRAM OXALATE 10 MG TAB (LEXAPRO) PO SCH (20:20)
[2020-11-04] MEDS: ROSUVASTATIN 10 MG TAB (CRESTOR) PO SCH (20:20)
[2020-11-05 06:00] VITALS: BP 121/79
[2020-11-05 06:23] LABS: HEMATOCRIT 31.1 % (36.0-47.0); HEMOGLOBIN 9.4 g/dl (12.0-15.5); MEAN CORPUSCULAR HEMOGLOBIN 30.8 pg (27.0-33.0); MEAN CORPUSCULAR HGB CONC 30.2 g/dl (32.0-36.5); PLATELET COUNT, AUTOMATED 295 10^3/uL (150-450); RED BLOOD COUNT 3.05 10^6/uL (4.00-5.40); WHITE BLOOD COUNT 8.6 10^3/uL (4.0-10.0)
[2020-11-05 06:50] LABS: CALCIUM LEVEL 8.2 MG/DL (8.8-10.2); CREATININE FOR GFR 1.09 MG/DL (0.55-1.30); GLOMERULAR FILTRATION RATE 52.1 (>39); MAGNESIUM LEVEL 2.1 MG/DL (1.8-2.4); POTASSIUM SERUM 3.7 MEQ/L (3.5-5.1)
[2020-11-05] MEDS: TAMSULOSIN 0.4 MG CAP PO SCH (09:26)
[2020-11-05] MEDS: LEVOTHYROXINE 88MCG TABLET (0.088 MG) PO SCH (09:26)
[2020-11-05] MEDS: amLODIPine 5 MG TAB PO SCH (09:26)
[2020-11-05] MEDS: acetaZOLAMIDE 500 MG ER CAP PO SCH ×2 (09:26→20:23)
[2020-11-05] MEDS: IRON POLYSAC (NIFEREX) 150 MG CAP PO SCH (09:26)
[2020-11-05] MEDS: MOM 30ML SUSPENSION UDC PO PRN (10:59)
[2020-11-05] MEDS: SENOKOT S TAB PO PRN (10:59)
[2020-11-05] MEDS: PERCOCET 5MG/325MG TAB PO PRN (10:59)
[2020-11-05] MEDS: LevoFLOXacin 250 MG TABLET PO SCH (16:19)
[2020-11-05] MEDS: ESCITALOPRAM OXALATE 10 MG TAB (LEXAPRO) PO SCH (20:24)
[2020-11-05] MEDS: ROSUVASTATIN 10 MG TAB (CRESTOR) PO SCH (20:24)
[2020-11-06 06:00] VITALS: BP 138/79
[2020-11-06] MEDS: IRON POLYSAC (NIFEREX) 150 MG CAP PO SCH (09:29)
[2020-11-06] MEDS: amLODIPine 5 MG TAB PO SCH (09:29)
[2020-11-06] MEDS: acetaZOLAMIDE 500 MG ER CAP PO SCH ×2 (09:29→21:06)
[2020-11-06] MEDS: LEVOTHYROXINE 88MCG TABLET (0.088 MG) PO SCH (09:29)
[2020-11-06] MEDS: TAMSULOSIN 0.4 MG CAP PO SCH (09:29)
[2020-11-06] MEDS: SENOKOT S TAB PO PRN (09:31)
[2020-11-06] MEDS: MOM 30ML SUSPENSION UDC PO PRN (09:31)
[2020-11-06] MEDS: LevoFLOXacin 250 MG TABLET PO SCH (16:35)
[2020-11-06] MEDS: ESCITALOPRAM OXALATE 10 MG TAB (LEXAPRO) PO SCH (21:06)
[2020-11-06] MEDS: ROSUVASTATIN 10 MG TAB (CRESTOR) PO SCH (21:07)
[2020-11-06 22:00] VITALS: BP_SYST 126; BP_SYST 134; BP_DIAS 63; BP_DIAS 83
[2020-11-07 06:00] VITALS: BP 128/48
[2020-11-07] MEDS: IRON POLYSAC (NIFEREX) 150 MG CAP PO SCH (09:39)
[2020-11-07] MEDS: acetaZOLAMIDE 500 MG ER CAP PO SCH ×2 (09:39→21:05)
[2020-11-07] MEDS: TAMSULOSIN 0.4 MG CAP PO SCH (09:39)
[2020-11-07] MEDS: LEVOTHYROXINE 88MCG TABLET (0.088 MG) PO SCH (09:40)
[2020-11-07] MEDS: amLODIPine 5 MG TAB PO SCH (09:40)
[2020-11-07] MEDS: LevoFLOXacin 250 MG TABLET PO SCH (16:32)
[2020-11-07] MEDS: ESCITALOPRAM OXALATE 10 MG TAB (LEXAPRO) PO SCH (21:05)
[2020-11-07] MEDS: ROSUVASTATIN 10 MG TAB (CRESTOR) PO SCH (21:05)
[2020-11-07] MEDS: PERCOCET 5MG/325MG TAB PO PRN (21:06)
[2020-11-08 06:00] VITALS: BP 125/54
[2020-11-08] MEDS: LEVOTHYROXINE 88MCG TABLET (0.088 MG) PO SCH (08:54)
[2020-11-08] MEDS: IRON POLYSAC (NIFEREX) 150 MG CAP PO SCH (08:54)
[2020-11-08] MEDS: TAMSULOSIN 0.4 MG CAP PO SCH (08:54)
[2020-11-08] MEDS: acetaZOLAMIDE 500 MG ER CAP PO SCH ×2 (08:54→20:09)
[2020-11-08] MEDS: amLODIPine 5 MG TAB PO SCH (08:55)
[2020-11-08] MEDS: LevoFLOXacin 250 MG TABLET PO SCH (16:27)
[2020-11-08] MEDS: ROSUVASTATIN 10 MG TAB (CRESTOR) PO SCH (20:09)
[2020-11-08] MEDS: ESCITALOPRAM OXALATE 10 MG TAB (LEXAPRO) PO SCH (20:09)
[2020-11-09 06:00] VITALS: BP 128/61
[2020-11-09] MEDS: TAMSULOSIN 0.4 MG CAP PO SCH (08:28)
[2020-11-09] MEDS: acetaZOLAMIDE 500 MG ER CAP PO SCH ×2 (08:29→20:27)
[2020-11-09] MEDS: amLODIPine 5 MG TAB PO SCH (08:29)
[2020-11-09] MEDS: IRON POLYSAC (NIFEREX) 150 MG CAP PO SCH (08:29)
[2020-11-09] MEDS: LEVOTHYROXINE 88MCG TABLET (0.088 MG) PO SCH (08:34)
[2020-11-09] MEDS: LevoFLOXacin 250 MG TABLET PO SCH (16:48)
--- NOTE | 2020-11-09 18:07 | IPNPDOC ---
Text Note Date of Service The patient was seen on 11/09/20. NOTE Subjective: Patient was seen and examined at bedside today. No acute overnight events reported. No new medical complaints. Objective: PHYSICAL EXAMINATION: VITAL SIGNS: See below GENERAL APPEARANCE: NAD,sitting comfortably in chair HEENT: NC/AT, EOMI CARDIOVASCULAR: +S1S2, RRR LUNGS: CTA B/L ABDOMEN: soft, NT EXTREMITIES: no edema NEUROLOGICAL: no gross focal deficits PSYCHIATRIC: AAOx3 A/P: 75-year-old female with history of recurrent UTI and renal stones presented to the ED with 3-day history of low back pain and symptoms of UTI on further evaluation in the ED CT scan showed 4.2 mm left proximal ureteral calculus for which urology was consulted. #Ureteral stone/UTI - completed 10 day levaquin stable -We will continue her on tamsulosin. We will continue tramadol and Zofran as needed. We will give her percocet for severe pain as needed - urology c/s appreciated #Hypertension: -stable - continue amlodipine #Chronic back pain: -Patient has acute on chronic back pain. -Her acute pain is due to ureteral stone. -Pain management morphine and tramadol. #Hypothyroidism: -We will continue home medication Synthyroid #Depression: -We will continue home medication Lexapro. #HDL: -We will continue statin. Disposition: -pending placement VS,Fishbone, I+O VS, Fishbone, I+O Vital Signs Date Time Temp Pulse Resp B/P (MAP) Pulse Ox O2 Delivery O2 Flow Rate FiO2 11/09/20 08:29 67 144/69 11/08/20 06:00 98.9 18 95 Room Air I&O- Last 24 Hours up to 6 AM 11/09/20 06:00 Intake Total 690 ml Output Total 200 ml Balance 490 ml CHEY JOY MD Nov 09, 2020 18:07
[2020-11-09] MEDS: ESCITALOPRAM OXALATE 10 MG TAB (LEXAPRO) PO SCH (20:27)
[2020-11-09] MEDS: ROSUVASTATIN 10 MG TAB (CRESTOR) PO SCH (20:27)
[2020-11-09] MEDS ORDERED: ACETAMINOPHEN TAB 650MG DOSE (2X325MG) PO PRN (20:45)
[2020-11-10 06:00] VITALS: BP_SYST 125; BP_SYST 130; BP_DIAS 48; BP_DIAS 59
[2020-11-10 06:42] LABS: HEMATOCRIT 27.2 % (36.0-47.0); HEMOGLOBIN 8.3 g/dl (12.0-15.5); MEAN CORPUSCULAR HEMOGLOBIN 30.6 pg (27.0-33.0); MEAN CORPUSCULAR HGB CONC 30.5 g/dl (32.0-36.5); MEAN CORPUSCULAR VOLUME 100.4 fl (80.0-96.0); PLATELET COUNT, AUTOMATED 252 10^3/uL (150-450); RED BLOOD COUNT 2.71 10^6/uL (4.00-5.40); WHITE BLOOD COUNT 6.8 10^3/uL (4.0-10.0)
[2020-11-10 07:12] LABS: BLOOD UREA NITROGEN 20 MG/DL (7-18); CALCIUM LEVEL 7.8 MG/DL (8.8-10.2); CARBON DIOXIDE LEVEL 20 MEQ/L (21-32); CHLORIDE LEVEL 120 MEQ/L (98-107); CREATININE FOR GFR 0.95 MG/DL (0.55-1.30); GLOMERULAR FILTRATION RATE > 60.0 (>39); GLUCOSE, FASTING 83 MG/DL (70-100); POTASSIUM SERUM 3.4 MEQ/L (3.5-5.1); SODIUM LEVEL 148 MEQ/L (136-145)
[2020-11-10] MEDS ORDERED: POTASSIUM CHLORIDE 10 MEQ SR TABLET PO ONE (08:00)
[2020-11-10] MEDS: IRON POLYSAC (NIFEREX) 150 MG CAP PO SCH (08:16)
[2020-11-10] MEDS: TAMSULOSIN 0.4 MG CAP PO SCH (08:17)
[2020-11-10] MEDS: acetaZOLAMIDE 500 MG ER CAP PO SCH ×2 (08:17→21:49)
[2020-11-10] MEDS: LEVOTHYROXINE 88MCG TABLET (0.088 MG) PO SCH (08:17)
[2020-11-10] MEDS: amLODIPine 5 MG TAB PO SCH (08:20)
[2020-11-10] MEDS: ROSUVASTATIN 10 MG TAB (CRESTOR) PO SCH (21:49)
[2020-11-10] MEDS: ESCITALOPRAM OXALATE 10 MG TAB (LEXAPRO) PO SCH (21:49)
[2020-11-11 06:00] VITALS: BP 138/54
[2020-11-11] MEDS: TAMSULOSIN 0.4 MG CAP PO SCH (09:44)
[2020-11-11] MEDS: IRON POLYSAC (NIFEREX) 150 MG CAP PO SCH (09:44)
[2020-11-11] MEDS: acetaZOLAMIDE 500 MG ER CAP PO SCH (09:44)
[2020-11-11 09:47] VITALS: BP 141/64
[2020-11-11] MEDS: amLODIPine 5 MG TAB PO SCH (09:47)
--- NOTE | 2020-11-11 10:26 | DS.PDOC ---
Discharge Summary General Date of Admission Oct 30, 2020 at 15:16 Date of Discharge Nov 11, 2020 Specialist/[facility], Dr. Dickens Discharge Summary PROCEDURES PERFORMED DURING STAY: None ADMITTING DIAGNOSES: 1. UTI complicated by nephrolithiasis 2. Nephrolithiasis 3. Hypertension 4. Macrocytic anemia 5. Chronic back pain 6. Hypothyroidism 7. Depression 8. Hyperlipidemia 9. COPD DISCHARGE DIAGNOSES: 1. UTI complicated by nephrolithiasis 2. Nephrolithiasis 3. Hypertension 4. Macrocytic anemia 5. Chronic back pain 6. Hypothyroidism 7. Depression 8. Hyperlipidemia 9. COPD COMPLICATIONS/CHIEF COMPLAINT: Nephrolithiasis. HISTORY OF PRESENT ILLNESS: Copied from admitting attending's H&P " Ms. Laughlin is a 75 year old female w/ history of multiple UTIs who was sent to the ED by her PCM for UA concerning for renal stone. Patient reports that 3 days ago she woke up with low back pain and urinary frequency which made her concerned for UTI or kidney infection. She was able to perform a UA with her PCM and was empirically started on Levaquin. She states that this morning she received a call from her PCMs office stating her UA was also concerning for renal stone as there was blood in the study. Patient has had prior history of nephrolithiasis. She has not experienced localizing flank pain or fevers/chills and she has no nausea, vomiting, or stool changes. Aside from increased urinary frequency she has also noticed a strong odor to her urine and generalized malaise but she denies dysuria which is something she typically gets with her UTIS. " HOSPITAL COURSE: Urology evaluated the patient. The stone was 0.3mm. Recommended trial of passage with Flomax and hydration. Patient may follow up with urology outpatient. Patient did well and pain was controlled. Otherwise, UA suspicious for infection. Patient completed 10 days of levofloxacin. Urine culture has no growth of clinical significance. Patient has had no fever or leukocytosis. Patient was medially stabilized, but required rehabilitation. This morning, patient denies any chest pain or dyspnea. She has chronic low back pain, unchanged from prior. She feels ready for rehab. Patient will be discharged today. DISCHARGE MEDICATIONS: Please see below. ALLERGIES: Please see below. PHYSICAL EXAMINATION ON DISCHARGE: VITAL SIGNS: Please see below. GENERAL: Comfortable, in no apparent distress. HEENT: Sclera clear. NECK: Supple. RESPIRATORY: Lungs clear to auscultation bilaterally, no rales, wheeze or rhonchi. CARDIOVASCULAR: Regular rate and rhythm. ABDOMEN: Soft, nontender. Normal bowel sounds. PSYCHOLOGICAL: Normal mood and affect LABORATORY DATA: Please see below. IMAGING: Radiologist interpretation CT abd/pelvis without contrast 1. There is 1 large gallstone measuring 2 cm. 2. There is a 4.2 mm calculus in the proximal left ureter without associated hydronephrosis or perinephric stranding. There is an additional low dense region- parapelvic which may represent a cyst or other low-dense parenchymal lesion. An additional punctate calcification may be within the renal collecting system or arterial. There is an 8.2 mm poorly assessed exophytic lesion. These lesions could be further assessed by renal protocol CT or MRI. The hematuria is likely due to the calculus in the proximal left ureter. PROGNOSIS: Good ACTIVITY: As tolerated. DIET: 2gm sodium diet DISCHARGE PLAN: Discharge to [facility]. DISPOSITION: Discharge to [facility]. DISCHARGE INSTRUCTIONS: 1. Follow up with PCP in 1 week 2. Follow up with Urology in 1 week DISCHARGE CONDITION: Stable. Total time spent on discharge planning, discharge summary, and medication reconciliation: 45 minutes Vital Signs/I&Os Vital Signs Date Time Temp Pulse Resp B/P (MAP) Pulse Ox O2 Delivery O2 Flow Rate FiO2 11/11/20 09:47 68 141/64 11/11/20 06:00 97.4 18 97 Room Air I&O- Last 24 Hours up to 6 AM 11/11/20 06:00 Intake Total 630 ml Output Total 0 ml Balance 630 ml Discharge Medications Scheduled Acetazolamide (Acetazolamide ER) 500 Mg Capsule.er, 500 MG PO BID, (Reported) Ascorbic Acid (Vitamin C) 500 Mg Capsule, 500 MG PO DAILY, (Reported) Aspirin (Aspirin EC) 325 Mg Tabec, 325 MG PO DAILY, (Reported) Calcium Carbonate (Calcium) 500 Mg Tablet, 500 MG PO DAILY, (Reported) Escitalopram Oxalate (Lexapro) 10 Mg Tablet, 10 MG PO QHS, (Reported) Levothyroxine Sodium (Levothyroxine Sodium) 88 Mcg Tablet, 88 MCG PO DAILY, (Reported) Multivitamin (Daily [place]) 1 Each Tablet, 1 TAB PO DAILY, (Reported) [place]-3 Fatty Acids/Fish Oil (Fish Oil 1,000 mg Capsule) 1 Each Capsule, 1 CAP PO DAILY, (Reported) Rosuvastatin Calcium (Rosuvastatin Calcium) 5 Mg Tab, 5 MG PO QHS, (Reported) Tamsulosin HCl (Flomax) 0.4 Mg Capsule, 0.4 MG PO DAILY Scheduled PRN Acetaminophen (Acetaminophen) 325 Mg Tablet, 650 MG PO Q4-6HP PRN for PAIN, (Reported) Oxycodone HCl/Acetaminophen (Oxycodone-Acetaminophen 5-325) 1 Each Tablet, 1 TAB PO TIDP PRN for pain Allergies Coded Allergies: No Known Allergies (Unverified , 09/17/18) JACKIE NESS DO Nov 11, 2020 10:06
[2020-11-12] MEDS ORDERED: LEVOTHYROXINE 88MCG TABLET (0.088 MG) PO SCH (06:00)
== END 2020-11-11 12:00 | DRG 690 ==
LOC: EDBD 15:15 → M ED 15:15 → OBSVTOIN 15:16 → M ED INP 15:16 → ENRESERV 10-31 00:10 → M MSPAV 10-31 00:52
PROVIDERS: ADMIT General Practice; ATTEND Internal Medicine
DX: N13.6 Pyonephrosis (principal); I10 Essential (primary) hypertension; J44.9 Chronic obstructive pulmonary disease, unspecified; E78.5 Hyperlipidemia, unspecified; F32.9 Major depressive disorder, single episode, unspecified; M54.5 Low back pain; E03.9 Hypothyroidism, unspecified; Z79.82 Long term (current) use of aspirin; Z79.899 Other long term (current) drug therapy

== ENCOUNTER → 2020-11-12 | Outpatient (REF) ==
[~2020-11-12] MED LIST changes: +ACET-910 PO; +ACET500C10 PO; +DAILTAB51 PO; +FLOM0.4C39 PO; +LEVO250T12 PO; +LEXA1TAB PO; +OXYC1TAB23 PO
[2020-11-12 11:07] LABS: FREE T4 0.96 NG/DL (0.76-1.46); GLOMERULAR FILTRATION RATE 57.5 (>39); POTASSIUM SERUM 3.9 MEQ/L (3.5-5.1); THYROID STIMULATING HORMONE 10.4 uIU/ML (0.358-3.740)
== END ==
LOC: SKLAB2 12:21
PROVIDERS: ATTEND Neuromusculoskeletal Medicine & OMM
DX: E87.0 Hyperosmolality and hypernatremia (principal); E03.9 Hypothyroidism, unspecified

== ENCOUNTER → 2020-12-07 | Outpatient (REF) | payer MEDICARE, BC | LOC: M LAB REF 14:33 | PROVIDERS: ATTEND Internal Medicine | DX: R30.0 Dysuria (principal) ==

== ENCOUNTER → 2020-12-11 | Outpatient (REF) | payer MEDICARE, BC ==
[2020-12-11 17:42] LABS: PERCENT SATURATION 13.8 % (13.2-45.0)
== END ==
LOC: M LAB REF 16:26
PROVIDERS: ATTEND Internal Medicine
DX: D50.9 Iron deficiency anemia, unspecified (principal)

== ENCOUNTER → 2021-03-17 | Outpatient (REF) | payer MEDICARE, BC | LOC: M LAB REF 16:30 | PROVIDERS: ATTEND Internal Medicine | DX: R30.0 Dysuria (principal) ==

== ENCOUNTER → 2021-06-04 | Outpatient (REF) | payer MEDICARE, MEDICAID ==
[~2021-06-04] MED LIST changes: -LEVO250T12 PO; +LEVO250T3 PO
[2021-06-04 17:44] LABS: PERCENT SATURATION 21.8 % (13.2-45.0)
== END ==
LOC: M LAB REF 16:39
PROVIDERS: ATTEND Internal Medicine
DX: D50.9 Iron deficiency anemia, unspecified (principal)

== ENCOUNTER → 2021-06-17 | Outpatient (REF) | payer MEDICARE, MEDICAID | LOC: M LAB REF 16:08 | PROVIDERS: ATTEND Internal Medicine | DX: N39.0 Urinary tract infection, site not specified (principal) ==

== ENCOUNTER 2021-12-02 14:41 | Inpatient (IN) | payer MEDICAID, MEDICARE ==
[~2021-12-02] VITALS: Ht 162.6 cm; Wt 86.8 kg
[~2021-12-02 14:41] MED LIST changes: +LEVO1TAB38 PO; -LEVO250T3 PO
[2021-12-02 17:19] LABS: BASO % 0.6 % (0.0-1.0); EOS % 0.7 % (0.0-3.0); HEMATOCRIT 36.6 % (36.0-47.0); HEMOGLOBIN 11.4 g/dl (12.0-15.5); LYMPH # 0.4 10^3/uL (1.5-5.0); LYMPH % 8.2 % (24.0-44.0); MEAN CORPUSCULAR HEMOGLOBIN 30.2 pg (27.0-33.0); MEAN CORPUSCULAR HGB CONC 31.1 g/dl (32.0-36.5); MEAN CORPUSCULAR VOLUME 97.1 fl (80.0-96.0); MONO # 0.8 10^3/uL (0.0-0.8); MONO % 15.5 % (2.0-8.0); NEUTROPHILS % 74.6 % (36.0-66.0); PLATELET COUNT, AUTOMATED 180 10^3/uL (150-450); RED BLOOD COUNT 3.77 10^6/uL (4.00-5.40); WHITE BLOOD COUNT 5.3 10^3/uL (4.0-10.0)
[2021-12-02 17:56] LABS: ALBUMIN 3.4 GM/DL (3.2-5.2); ALT/SGPT 19 U/L (12-78); BILIRUBIN,DIRECT < 0.1 MG/DL (0.0-0.2); BILIRUBIN,TOTAL 0.2 MG/DL (0.2-1.0); BLOOD UREA NITROGEN 26 MG/DL (7-18); CALCIUM LEVEL 8.7 MG/DL (8.8-10.2); CARBON DIOXIDE LEVEL 21 MEQ/L (21-32); CHLORIDE LEVEL 117 MEQ/L (98-107); GLOMERULAR FILTRATION RATE 46.5 (>39); GLUCOSE, FASTING 90 MG/DL (70-100); POTASSIUM SERUM 3.7 MEQ/L (3.5-5.1); SODIUM LEVEL 145 MEQ/L (136-145); TOTAL PROTEIN 6.4 GM/DL (6.4-8.2)
[2021-12-02] MEDS ORDERED: HYDR-3363 PO (18:45)
[2021-12-02] MEDS ORDERED: EUTH100T PO (18:45)
[2021-12-02] MEDS ORDERED: ACETAMINOPHEN TAB 650MG DOSE (2X325MG) PO PRN (18:50)
[2021-12-02 20:02] LABS: INR 1.11; PROTHROMBIN TIME 14.7 SECONDS (12.7-14.5)
[2021-12-02 20:03] LABS: PARTIAL THROMBOPLASTIN TIME 28.1 SECONDS (25.9-37.0)
[2021-12-02] MEDS ORDERED: ISOVUE-370 76% 100ML VIAL As Ordered ONE (20:16)
[2021-12-02 20:33] LABS: C REACTIVE PROTEIN QUANTITATIV 0.99 MG/DL (0.00-0.30)
[2021-12-02] MEDS ORDERED: LORA-674 PO (20:44)
[2021-12-02] MEDS ORDERED: HOME MED LIST COMPLETE! XX SCH (20:45)
[2021-12-02] MEDS: NS 1,000 ML IV SCH (20:56)
[2021-12-02] MEDS ORDERED: LABETALOL 100MG/20ML VIAL IV STA (21:07)
[2021-12-02] MEDS ORDERED: GLUCOSE 4GM CHEW TABLET PO PRN (21:15)
[2021-12-02] MEDS ORDERED: GLUCAGON INJ 1MG VIAL SC PRN (21:15)
[2021-12-02] MEDS ORDERED: DEXTROSE 50% 50 ML SYRINGE IV PRN (21:15)
[2021-12-02 22:03] LABS: FREE T4 1.15 NG/DL (0.76-1.46); THYROID STIMULATING HORMONE 0.472 uIU/ML (0.358-3.740)
[2021-12-02 23:06] VITALS: BP 163/74
[2021-12-02] MEDS: ACETAMINOPHEN 650 MG SUPP PR PRN (23:14)
[2021-12-03] VITALS (9 sets, daily range): BP systolic 130–186; BP diastolic 61–84
[2021-12-03] MEDS ORDERED: KETOROLAC 30 MG/ML 1ML VIAL IV ONE (00:45)
[2021-12-03] MEDS: NS 1,000 ML IV SCH (04:11)
[2021-12-03 06:14] LABS: BASO % 0.6 % (0.0-1.0); EOS % 0.2 % (0.0-3.0); HEMATOCRIT 33.5 % (36.0-47.0); LYMPH # 0.8 10^3/uL (1.5-5.0); LYMPH % 15.6 % (24.0-44.0); MEAN CORPUSCULAR HGB CONC 29.9 g/dl (32.0-36.5); MEAN CORPUSCULAR VOLUME 103.7 fl (80.0-96.0); MONO % 18.5 % (2.0-8.0); NEUTROPHILS # 3.4 10^3/uL (1.5-8.5); NEUTROPHILS % 64.7 % (36.0-66.0); PLATELET COUNT, AUTOMATED 202 10^3/uL (150-450); RED BLOOD COUNT 3.23 10^6/uL (4.00-5.40); WHITE BLOOD COUNT 5.2 10^3/uL (4.0-10.0)
[2021-12-03 06:39] LABS: CALCIUM LEVEL 7.9 MG/DL (8.8-10.2); CREATININE FOR GFR 1.14 MG/DL (0.55-1.30); GLOMERULAR FILTRATION RATE 49.3 (>39); MAGNESIUM LEVEL 1.9 MG/DL (1.8-2.4); POTASSIUM SERUM 3.4 MEQ/L (3.5-5.1)
[2021-12-03] MEDS: KCL 20MEQ in NS 1000ML 1,000 ML IV SCH ×2 (07:39→13:47)
[2021-12-03] MEDS: LEVOTHYROXINE 100MCG (0.1MG) 5ML SDV PF (SOLUTION FORM) IV SCH (07:39)
[2021-12-03] MEDS: ENOXAPARIN 40MG/0.4ML SYRINGE (J1650 PER 10MG) SC SCH (07:40)
[2021-12-03] MEDS: ASCORBIC ACID 500 MG TAB PO SCH (10:44)
[2021-12-03] MEDS: ASPIRIN ENTERIC 325 MG TAB PO SCH (10:44)
[2021-12-03] MEDS: LABETALOL 100MG/20ML VIAL IV PRN (13:46)
[2021-12-03] MEDS: ACETAMINOPHEN 650 MG SUPP PR PRN ×2 (13:46→18:09)
[2021-12-03] MEDS ORDERED: ONDANSETRON 4MG 2ML VIAL IV ONE (14:30)
[2021-12-03 15:42] LABS: INR 1.11; PROTHROMBIN TIME 14.7 SECONDS (12.7-14.5)
[2021-12-03 15:43] LABS: PARTIAL THROMBOPLASTIN TIME 28.4 SECONDS (25.9-37.0)
[2021-12-03 15:46] LABS: D-DIMER QUANT 2179.48 ng/ml (<500)
[2021-12-03 16:01] LABS: ABG BASE EXCESS -11.1 (-2.0-2.0); ABG HCO3 14.5 MEQ/L (22.0-26.0); ABG O2 SATURATION 94.8 % (95.0-99.0); ABG PARTIAL PRESSURE CO2 31.7 mmHg (35.0-45.0); ABG PARTIAL PRESSURE O2 71.6 mmHg (75.0-100.0); ABG STANDARD HCO3 15.6 MEQ/L (22.0-26.0); ABG TOTAL CO2 15.5 MEQ/L (23.0-31.0); ABG pH (ARTERIAL) 7.279 UNITS (7.350-7.450)
[2021-12-03 16:08] LABS: ALBUMIN 2.8 GM/DL (3.2-5.2); ALT/SGPT 22 U/L (12-78); BILIRUBIN,DIRECT < 0.1 MG/DL (0.0-0.2); BILIRUBIN,TOTAL 0.3 MG/DL (0.2-1.0); FERRITIN 128 NG/ML (8-252); LDH LACTATE DEHYDROGENASE 426 U/L (84-246); TOTAL PROTEIN 5.8 GM/DL (6.4-8.2)
[2021-12-03] MEDS ORDERED: REMDESIVIR 200 MG in NS 250 ML IV ONE (17:00)
[2021-12-03] MEDS ORDERED: ACETAMINOPHEN 650 MG SUPP PR ONE (20:40)
[2021-12-03] MEDS ORDERED: PROHANCE 279.3MG/ML 15ML VIAL As Ordered ONE (21:51)
[2021-12-03] MEDS: ROSUVASTATIN 10 MG TAB (CRESTOR) PO SCH (22:47)
[2021-12-04] VITALS (19 sets, daily range): BP systolic 135–173; BP diastolic 63–79; O2SAT 94–97
[2021-12-04] MEDS: KCL 20MEQ in NS 1000ML 1,000 ML IV SCH (05:34)
[2021-12-04] MEDS: KCL 20MEQ IN D5/NS 1000ML 1,000 ML IV SCH ×2 (06:21→14:41)
[2021-12-04 07:30] LABS: BASO % 0.4 % (0.0-1.0); EOS % 0.2 % (0.0-3.0); HEMATOCRIT 32.1 % (36.0-47.0); HEMOGLOBIN 10.1 g/dl (12.0-15.5); MEAN CORPUSCULAR HEMOGLOBIN 30.8 pg (27.0-33.0); MEAN CORPUSCULAR HGB CONC 31.5 g/dl (32.0-36.5); MEAN CORPUSCULAR VOLUME 97.9 fl (80.0-96.0); MONO # 0.7 10^3/uL (0.0-0.8); MONO % 12.5 % (2.0-8.0); NEUTROPHILS # 3.8 10^3/uL (1.5-8.5); NEUTROPHILS % 68.7 % (36.0-66.0); PLATELET COUNT, AUTOMATED 148 10^3/uL (150-450); RED BLOOD COUNT 3.28 10^6/uL (4.00-5.40); WHITE BLOOD COUNT 5.5 10^3/uL (4.0-10.0)
[2021-12-04 08:27] LABS: BLOOD UREA NITROGEN 18 MG/DL (7-18); CALCIUM LEVEL 7.6 MG/DL (8.8-10.2); CARBON DIOXIDE LEVEL 16 MEQ/L (21-32); CHLORIDE LEVEL 121 MEQ/L (98-107); CREATININE FOR GFR 0.95 MG/DL (0.55-1.30); GLOMERULAR FILTRATION RATE > 60.0 (>39); GLUCOSE, FASTING 93 MG/DL (70-100); MAGNESIUM LEVEL 1.9 MG/DL (1.8-2.4); POTASSIUM SERUM 3.9 MEQ/L (3.5-5.1); SODIUM LEVEL 142 MEQ/L (136-145)
[2021-12-04] MEDS: LEVOTHYROXINE 100MCG (0.1MG) 5ML SDV PF (SOLUTION FORM) IV SCH (09:10)
[2021-12-04] MEDS: ASCORBIC ACID 500 MG TAB PO SCH (09:11)
[2021-12-04] MEDS: ENOXAPARIN 40MG/0.4ML SYRINGE (J1650 PER 10MG) SC SCH (09:11)
[2021-12-04] MEDS: ASPIRIN ENTERIC 325 MG TAB PO SCH (09:11)
[2021-12-04] MEDS: REMDESIVIR 100 MG in NS 250 ML IV SCH (16:40)
[2021-12-04] MEDS: LABETALOL 100MG/20ML VIAL IV PRN (16:40)
[2021-12-04] MEDS: ROSUVASTATIN 10 MG TAB (CRESTOR) PO SCH (21:53)
[2021-12-04] MEDS ORDERED: ONDANSETRON 4MG 2ML VIAL IV ONE (23:20)
[2021-12-05] VITALS (10 sets, daily range): BP systolic 152–195; BP diastolic 72–90; O2SAT 93–97
[2021-12-05] MEDS: KCL 20MEQ IN D5/NS 1000ML 1,000 ML IV SCH ×2 (00:34→08:54)
[2021-12-05 08:27] LABS: BASO % 0.3 % (0.0-1.0); EOS % 0.6 % (0.0-3.0); HEMATOCRIT 34.2 % (36.0-47.0); HEMOGLOBIN 10.9 g/dl (12.0-15.5); LYMPH # 0.9 10^3/uL (1.5-5.0); LYMPH % 26.3 % (24.0-44.0); MEAN CORPUSCULAR HEMOGLOBIN 30.1 pg (27.0-33.0); MEAN CORPUSCULAR HGB CONC 31.9 g/dl (32.0-36.5); MEAN CORPUSCULAR VOLUME 94.5 fl (80.0-96.0); MONO # 0.5 10^3/uL (0.0-0.8); MONO % 14.5 % (2.0-8.0); PLATELET COUNT, AUTOMATED 153 10^3/uL (150-450); RED BLOOD COUNT 3.62 10^6/uL (4.00-5.40); WHITE BLOOD COUNT 3.4 10^3/uL (4.0-10.0)
[2021-12-05] MEDS: ASPIRIN ENTERIC 325 MG TAB PO SCH (08:53)
[2021-12-05] MEDS: LEVOTHYROXINE 100MCG (0.1MG) 5ML SDV PF (SOLUTION FORM) IV SCH (08:53)
[2021-12-05] MEDS: ASCORBIC ACID 500 MG TAB PO SCH (08:53)
[2021-12-05] MEDS: ENOXAPARIN 40MG/0.4ML SYRINGE (J1650 PER 10MG) SC SCH (08:54)
[2021-12-05 09:05] LABS: BLOOD UREA NITROGEN 11 MG/DL (7-18); CALCIUM LEVEL 7.8 MG/DL (8.8-10.2); CARBON DIOXIDE LEVEL 17 MEQ/L (21-32); CHLORIDE LEVEL 121 MEQ/L (98-107); CREATININE FOR GFR 0.68 MG/DL (0.55-1.30); GLOMERULAR FILTRATION RATE > 60.0 (>39); GLUCOSE, FASTING 114 MG/DL (70-100); MAGNESIUM LEVEL 1.8 MG/DL (1.8-2.4); POTASSIUM SERUM 3.7 MEQ/L (3.5-5.1); SODIUM LEVEL 145 MEQ/L (136-145)
[2021-12-05] MEDS: acetaZOLAMIDE 500MG ER CAP PO SCH ×2 (14:00→20:05)
[2021-12-05] MEDS: REMDESIVIR 100 MG in NS 250 ML IV SCH (16:35)
[2021-12-05] MEDS: ROSUVASTATIN 10 MG TAB (CRESTOR) PO SCH (20:05)
[2021-12-05] MEDS: LABETALOL 100MG/20ML VIAL IV PRN (21:07)
[2021-12-06] VITALS: BP 155/75
[2021-12-06 05:21] VITALS: BP 179/85
[2021-12-06] MEDS: LABETALOL 100MG/20ML VIAL IV PRN (05:27)
[2021-12-06 06:17] LABS: BASO % 0.6 % (0.0-1.0); EOS # 0.1 10^3/uL (0.0-0.5); EOS % 3.7 % (0.0-3.0); HEMATOCRIT 33.3 % (36.0-47.0); HEMOGLOBIN 10.8 g/dl (12.0-15.5); LYMPH # 1.4 10^3/uL (1.5-5.0); LYMPH % 40.5 % (24.0-44.0); MEAN CORPUSCULAR HEMOGLOBIN 31.2 pg (27.0-33.0); MEAN CORPUSCULAR HGB CONC 32.4 g/dl (32.0-36.5); MEAN CORPUSCULAR VOLUME 96.2 fl (80.0-96.0); MONO # 0.5 10^3/uL (0.0-0.8); MONO % 13.1 % (2.0-8.0); NEUTROPHILS # 1.5 10^3/uL (1.5-8.5); NEUTROPHILS % 41.8 % (36.0-66.0); PLATELET COUNT, AUTOMATED 145 10^3/uL (150-450); RED BLOOD COUNT 3.46 10^6/uL (4.00-5.40); WHITE BLOOD COUNT 3.5 10^3/uL (4.0-10.0)
[2021-12-06 06:43] LABS: BLOOD UREA NITROGEN 12 MG/DL (7-18); CALCIUM LEVEL 8.1 MG/DL (8.8-10.2); CARBON DIOXIDE LEVEL 20 MEQ/L (21-32); CHLORIDE LEVEL 120 MEQ/L (98-107); CREATININE FOR GFR 0.76 MG/DL (0.55-1.30); GLOMERULAR FILTRATION RATE > 60.0 (>39); GLUCOSE, FASTING 92 MG/DL (70-100); MAGNESIUM LEVEL 1.8 MG/DL (1.8-2.4); POTASSIUM SERUM 3.4 MEQ/L (3.5-5.1); SODIUM LEVEL 144 MEQ/L (136-145)
[2021-12-06 07:43] VITALS: BP 138/82
[2021-12-06] MEDS ORDERED: LEVOTHYROXINE 100MCG TABLET (0.1MG) PO SCH (09:00)
[2021-12-06] MEDS: acetaZOLAMIDE 500MG ER CAP PO SCH ×2 (09:52→20:48)
[2021-12-06] MEDS: ENOXAPARIN 40MG/0.4ML SYRINGE (J1650 PER 10MG) SC SCH (09:52)
[2021-12-06] MEDS: ASPIRIN ENTERIC 325 MG TAB PO SCH (09:52)
[2021-12-06] MEDS: ASCORBIC ACID 500 MG TAB PO SCH (09:52)
[2021-12-06] MEDS: amLODIPine 5 MG TAB PO SCH (14:29)
[2021-12-06 15:00] VITALS: BP 177/81
[2021-12-06] MEDS: REMDESIVIR 100 MG in NS 250 ML IV SCH (16:33)
[2021-12-06] MEDS: ROSUVASTATIN 10 MG TAB (CRESTOR) PO SCH (20:48)
[2021-12-06] MEDS ORDERED: ONDANSETRON 4MG 2ML VIAL IV PRN (21:00)
[2021-12-07] MEDS: LEVOTHYROXINE 100MCG TABLET (0.1MG) PO SCH (06:14)
[2021-12-07 06:18] VITALS: BP 166/81
[2021-12-07] MEDS: acetaZOLAMIDE 500MG ER CAP PO SCH ×2 (10:07→20:48)
[2021-12-07] MEDS: ENOXAPARIN 40MG/0.4ML SYRINGE (J1650 PER 10MG) SC SCH (10:07)
[2021-12-07] MEDS: ASPIRIN ENTERIC 325 MG TAB PO SCH (10:07)
[2021-12-07] MEDS: ASCORBIC ACID 500 MG TAB PO SCH (10:07)
[2021-12-07] MEDS: amLODIPine 5 MG TAB PO SCH (10:14)
[2021-12-07] MEDS ORDERED: POTASSIUM CHLORIDE 10MEQ SR TABLET PO ONE (13:00)
[2021-12-07 13:40] VITALS: BP 142/84
[2021-12-07] MEDS: REMDESIVIR 100 MG in NS 250 ML IV SCH (17:29)
[2021-12-07 20:00] VITALS: BP 140/69
[2021-12-07] MEDS: ROSUVASTATIN 10 MG TAB (CRESTOR) PO SCH (20:49)
[2021-12-08 03:48] VITALS: BP 128/68
[2021-12-08] MEDS: LEVOTHYROXINE 100MCG TABLET (0.1MG) PO SCH (06:15)
[2021-12-08 10:00] VITALS: BP 129/60
[2021-12-08] MEDS: acetaZOLAMIDE 500MG ER CAP PO SCH ×2 (10:01→20:58)
[2021-12-08] MEDS: ASPIRIN ENTERIC 325 MG TAB PO SCH (10:01)
[2021-12-08] MEDS: ASCORBIC ACID 500 MG TAB PO SCH (10:01)
[2021-12-08] MEDS: ENOXAPARIN 40MG/0.4ML SYRINGE (J1650 PER 10MG) SC SCH (10:02)
[2021-12-08] MEDS: amLODIPine 5 MG TAB PO SCH (10:04)
[2021-12-08 12:00] VITALS: BP 129/72
[2021-12-08] MEDS: ROSUVASTATIN 10 MG TAB (CRESTOR) PO SCH (20:58)
[2021-12-09 04:37] VITALS: BP 137/65
[2021-12-09] MEDS: LEVOTHYROXINE 100MCG TABLET (0.1MG) PO SCH (05:31)
[2021-12-09] MEDS: ASPIRIN ENTERIC 325 MG TAB PO SCH (08:59)
[2021-12-09] MEDS: ASCORBIC ACID 500 MG TAB PO SCH (08:59)
[2021-12-09] MEDS: acetaZOLAMIDE 500MG ER CAP PO SCH ×2 (08:59→20:14)
[2021-12-09] MEDS: ENOXAPARIN 40MG/0.4ML SYRINGE (J1650 PER 10MG) SC SCH (09:00)
[2021-12-09] MEDS: amLODIPine 5 MG TAB PO SCH (09:00)
[2021-12-09] MEDS: ROSUVASTATIN 10 MG TAB (CRESTOR) PO SCH (20:11)
[2021-12-10] MEDS: RAMELTEON 8 MG TAB (ROZEREM) PO PRN ×2 (01:55→20:16)
[2021-12-10] MEDS: ACETAMINOPHEN TAB 650MG DOSE (2X325MG) PO PRN ×2 (01:55→20:17)
[2021-12-10] MEDS: LEVOTHYROXINE 100MCG TABLET (0.1MG) PO SCH (05:35)
[2021-12-10 05:40] VITALS: BP 133/60
[2021-12-10] MEDS: acetaZOLAMIDE 500MG ER CAP PO SCH ×2 (09:40→20:13)
[2021-12-10] MEDS: ASCORBIC ACID 500 MG TAB PO SCH (09:40)
[2021-12-10] MEDS: ASPIRIN ENTERIC 325 MG TAB PO SCH (09:40)
[2021-12-10] MEDS: ENOXAPARIN 40MG/0.4ML SYRINGE (J1650 PER 10MG) SC SCH (09:45)
[2021-12-10] MEDS: amLODIPine 5 MG TAB PO SCH (09:45)
[2021-12-10] MEDS: ROSUVASTATIN 10 MG TAB (CRESTOR) PO SCH (20:13)
[2021-12-11 04:00] VITALS: BP 124/54
[2021-12-11] MEDS: LEVOTHYROXINE 100MCG TABLET (0.1MG) PO SCH (05:51)
[2021-12-11] MEDS: ASCORBIC ACID 500 MG TAB PO SCH (08:26)
[2021-12-11] MEDS: acetaZOLAMIDE 500MG ER CAP PO SCH ×2 (08:26→20:04)
[2021-12-11] MEDS: ASPIRIN ENTERIC 325 MG TAB PO SCH (08:26)
[2021-12-11] MEDS: ENOXAPARIN 40MG/0.4ML SYRINGE (J1650 PER 10MG) SC SCH (08:26)
[2021-12-11] MEDS: amLODIPine 5 MG TAB PO SCH (08:28)
[2021-12-11] MEDS: RAMELTEON 8 MG TAB (ROZEREM) PO PRN (20:04)
[2021-12-11] MEDS: ROSUVASTATIN 10 MG TAB (CRESTOR) PO SCH (20:05)
[2021-12-11] MEDS: ACETAMINOPHEN TAB 650MG DOSE (2X325MG) PO PRN (20:05)
[2021-12-12 05:30] VITALS: BP 127/60
[2021-12-12] MEDS: LEVOTHYROXINE 100MCG TABLET (0.1MG) PO SCH (05:30)
[2021-12-12 07:00] VITALS: BP 126/55
[2021-12-12] MEDS: ASCORBIC ACID 500 MG TAB PO SCH (09:34)
[2021-12-12] MEDS: amLODIPine 5 MG TAB PO SCH (09:35)
[2021-12-12] MEDS: acetaZOLAMIDE 500MG ER CAP PO SCH ×2 (09:35→20:48)
[2021-12-12] MEDS: ASPIRIN ENTERIC 325 MG TAB PO SCH (09:35)
[2021-12-12] MEDS: ENOXAPARIN 40MG/0.4ML SYRINGE (J1650 PER 10MG) SC SCH (09:35)
[2021-12-12] MEDS: ROSUVASTATIN 10 MG TAB (CRESTOR) PO SCH (20:48)
[2021-12-13] MEDS: LEVOTHYROXINE 100MCG TABLET (0.1MG) PO SCH (05:26)
[2021-12-13 06:00] VITALS: BP 112/68
[2021-12-13] MEDS: ENOXAPARIN 40MG/0.4ML SYRINGE (J1650 PER 10MG) SC SCH (08:21)
[2021-12-13] MEDS: amLODIPine 5 MG TAB PO SCH (08:22)
[2021-12-13] MEDS: ASCORBIC ACID 500 MG TAB PO SCH (08:22)
[2021-12-13] MEDS: ASPIRIN ENTERIC 325 MG TAB PO SCH (08:22)
[2021-12-13] MEDS: acetaZOLAMIDE 500MG ER CAP PO SCH ×2 (08:22→20:21)
[2021-12-13] MEDS: ROSUVASTATIN 10 MG TAB (CRESTOR) PO SCH (20:21)
[2021-12-13] MEDS ORDERED: ONDANSETRON 4MG TAB PO PRN (20:30)
[2021-12-14 06:06] VITALS: BP 109/62
[2021-12-14] MEDS: LEVOTHYROXINE 100MCG TABLET (0.1MG) PO SCH (06:26)
[2021-12-14] MEDS: amLODIPine 5 MG TAB PO SCH (09:16)
[2021-12-14] MEDS: acetaZOLAMIDE 500MG ER CAP PO SCH ×2 (09:16→20:49)
[2021-12-14] MEDS: ASCORBIC ACID 500 MG TAB PO SCH (09:16)
[2021-12-14] MEDS: ASPIRIN ENTERIC 325 MG TAB PO SCH (09:16)
[2021-12-14] MEDS: ENOXAPARIN 40MG/0.4ML SYRINGE (J1650 PER 10MG) SC SCH (09:17)
[2021-12-14] MEDS: MIRALAX *UNIT DOSE* 17GM PACKET PO SCH (15:59)
[2021-12-14] MEDS: SENNA 8.6 MG TAB (SENOKOT) PO PRN (16:00)
[2021-12-14] MEDS: ROSUVASTATIN 10 MG TAB (CRESTOR) PO SCH (20:49)
[2021-12-15 04:47] VITALS: BP 133/59
[2021-12-15] MEDS: LEVOTHYROXINE 100MCG TABLET (0.1MG) PO SCH (05:27)
[2021-12-15] MEDS: ASPIRIN ENTERIC 325 MG TAB PO SCH (09:11)
[2021-12-15] MEDS: ENOXAPARIN 40MG/0.4ML SYRINGE (J1650 PER 10MG) SC SCH (09:11)
[2021-12-15] MEDS: MIRALAX *UNIT DOSE* 17GM PACKET PO SCH (09:11)
[2021-12-15] MEDS: acetaZOLAMIDE 500MG ER CAP PO SCH ×2 (09:11→20:48)
[2021-12-15] MEDS: ASCORBIC ACID 500 MG TAB PO SCH (09:11)
[2021-12-15] MEDS: SENNA 8.6 MG TAB (SENOKOT) PO PRN ×2 (09:11→20:48)
[2021-12-15] MEDS: amLODIPine 5 MG TAB PO SCH (09:12)
[2021-12-15] MEDS: ROSUVASTATIN 10 MG TAB (CRESTOR) PO SCH (20:48)
[2021-12-16] MEDS: LEVOTHYROXINE 100MCG TABLET (0.1MG) PO SCH (05:37)
[2021-12-16 06:00] VITALS: BP 121/57
[2021-12-16] MEDS: ASPIRIN ENTERIC 325 MG TAB PO SCH (08:36)
[2021-12-16] MEDS: ASCORBIC ACID 500 MG TAB PO SCH (08:36)
[2021-12-16] MEDS: ENOXAPARIN 40MG/0.4ML SYRINGE (J1650 PER 10MG) SC SCH (08:36)
[2021-12-16] MEDS: MIRALAX *UNIT DOSE* 17GM PACKET PO SCH (08:36)
[2021-12-16] MEDS: acetaZOLAMIDE 500MG ER CAP PO SCH ×2 (08:36→20:21)
[2021-12-16] MEDS: amLODIPine 5 MG TAB PO SCH (08:37)
[2021-12-16 08:45] LABS: BASO # 0.1 10^3/uL (0.0-0.2); BASO % 0.7 % (0.0-1.0); EOS # 0.2 10^3/uL (0.0-0.5); EOS % 2.5 % (0.0-3.0); HEMATOCRIT 36.2 % (36.0-47.0); HEMOGLOBIN 11.2 g/dl (12.0-15.5); LYMPH # 1.3 10^3/uL (1.5-5.0); MEAN CORPUSCULAR HEMOGLOBIN 30.4 pg (27.0-33.0); MEAN CORPUSCULAR HGB CONC 30.9 g/dl (32.0-36.5); MEAN CORPUSCULAR VOLUME 98.1 fl (80.0-96.0); MONO # 0.8 10^3/uL (0.0-0.8); MONO % 10.3 % (2.0-8.0); NEUTROPHILS # 5.3 10^3/uL (1.5-8.5); NEUTROPHILS % 68.7 % (36.0-66.0); PLATELET COUNT, AUTOMATED 294 10^3/uL (150-450); RED BLOOD COUNT 3.69 10^6/uL (4.00-5.40); WHITE BLOOD COUNT 7.7 10^3/uL (4.0-10.0)
[2021-12-16 09:21] LABS: BLOOD UREA NITROGEN 15 MG/DL (7-18); CALCIUM LEVEL 8.7 MG/DL (8.8-10.2); CARBON DIOXIDE LEVEL 20 MEQ/L (21-32); CHLORIDE LEVEL 118 MEQ/L (98-107); CREATININE FOR GFR 0.95 MG/DL (0.55-1.30); GLOMERULAR FILTRATION RATE > 60.0 (>39); GLUCOSE, FASTING 93 MG/DL (70-100); MAGNESIUM LEVEL 2.1 MG/DL (1.8-2.4); POTASSIUM SERUM 3.8 MEQ/L (3.5-5.1); SODIUM LEVEL 142 MEQ/L (136-145)
[2021-12-16] MEDS: ROSUVASTATIN 10 MG TAB (CRESTOR) PO SCH (20:21)
[2021-12-17] MEDS: LEVOTHYROXINE 100MCG TABLET (0.1MG) PO SCH (05:03)
[2021-12-17 06:00] VITALS: BP 125/63
[2021-12-17] MEDS: ASPIRIN ENTERIC 325 MG TAB PO SCH (08:56)
[2021-12-17] MEDS: acetaZOLAMIDE 500MG ER CAP PO SCH ×2 (08:56→20:21)
[2021-12-17] MEDS: amLODIPine 5 MG TAB PO SCH (08:57)
[2021-12-17] MEDS: ENOXAPARIN 40MG/0.4ML SYRINGE (J1650 PER 10MG) SC SCH (08:58)
[2021-12-17] MEDS: MIRALAX *UNIT DOSE* 17GM PACKET PO SCH (08:58)
[2021-12-17] MEDS: ASCORBIC ACID 500 MG TAB PO SCH (08:58)
[2021-12-17] MEDS: ROSUVASTATIN 10 MG TAB (CRESTOR) PO SCH (20:21)
[2021-12-18] MEDS: ACETAMINOPHEN TAB 650MG DOSE (2X325MG) PO PRN ×2 (02:43→08:52)
[2021-12-18] MEDS: LEVOTHYROXINE 100MCG TABLET (0.1MG) PO SCH (05:18)
[2021-12-18 06:00] VITALS: BP 125/58
[2021-12-18] MEDS: ASPIRIN ENTERIC 325 MG TAB PO SCH (08:50)
[2021-12-18] MEDS: acetaZOLAMIDE 500MG ER CAP PO SCH (08:51)
[2021-12-18] MEDS: ASCORBIC ACID 500 MG TAB PO SCH (08:52)
[2021-12-18 08:53] VITALS: BP 125/58
[2021-12-18] MEDS: amLODIPine 5 MG TAB PO SCH (08:53)
[2021-12-18] MEDS: MIRALAX *UNIT DOSE* 17GM PACKET PO SCH (08:53)
[2021-12-18] MEDS: ENOXAPARIN 40MG/0.4ML SYRINGE (J1650 PER 10MG) SC SCH (08:54)
[2021-12-18] MEDS ORDERED: AMLO1TAB24 PO (12:09)
[2021-12-18] MEDS ORDERED: SENN18TA PO (12:09)
== END 2021-12-18 16:05 | disposition home health service (06) | DRG 177 ==
LOC: M ED 14:41 → EDBD 14:41 → M ED INP 18:50 → ENRESERV 21:56 → M PCU 22:49 → M MS5PR 12-06 14:40 → M 4MAIN 12-07 13:21 → M MS5PR 12-12 07:00
PROVIDERS: ADMIT Internal Medicine; ATTEND Family Medicine
PROC: XW033E5 Introduction of Remdesivir Anti-infective into Peripheral Vein, Percutaneous Approach, New Technology Group 5 (ICD-10-PCS; principal; 2021-12-03)
DX: U07.1 COVID-19 (principal); G93.41 Metabolic encephalopathy; I16.9 Hypertensive crisis, unspecified; E03.9 Hypothyroidism, unspecified; E66.9 Obesity, unspecified; R32 Unspecified urinary incontinence; F32.A Depression, unspecified; E78.5 Hyperlipidemia, unspecified; E87.6 Hypokalemia; I10 Essential (primary) hypertension; M48.00 Spinal stenosis, site unspecified; Z66 Do not resuscitate; Z79.890 Hormone replacement therapy; Z79.899 Other long term (current) drug therapy; Z79.82 Long term (current) use of aspirin; Z87.442 Personal history of urinary calculi; Z87.440 Personal history of urinary (tract) infections; Z68.33 Body mass index [BMI] 33.0-33.9, adult

== ENCOUNTER → 2022-03-31 | Outpatient (CLI) | payer MEDICARE, MEDICAID ==
[~2022-03-31] MED LIST changes: +AMLO1TAB24 PO; +EUTH100T PO; +HYDR-3363 PO; +LORA-674 PO; +SENN18TA PO
== END ==
LOC: M WUC 13:48
PROVIDERS: ATTEND Internal Medicine
DX: M25.561 Pain in right knee (principal)

== ENCOUNTER 2022-05-04 11:32 | Observation (INO) | payer MEDICAID, MEDICARE ==
[~2022-05-04] VITALS: Ht 165.1 cm; Wt 87.2 kg
[2022-05-04] MEDS ORDERED: OXYMETAZOLINE 0.05% NASAL SPRAY (AFRIN) ONE (12:55)
[2022-05-04 13:37] LABS: BASO # 0.1 10^3/uL (0.0-0.2); BASO % 0.5 % (0.0-1.0); EOS # 0.1 10^3/uL (0.0-0.5); EOS % 1.1 % (0.0-3.0); HEMATOCRIT 38.3 % (36.0-47.0); HEMOGLOBIN 11.7 g/dl (12.0-15.5); LYMPH # 1.2 10^3/uL (1.5-5.0); LYMPH % 9.8 % (24.0-44.0); MEAN CORPUSCULAR HEMOGLOBIN 29.7 pg (27.0-33.0); MEAN CORPUSCULAR HGB CONC 30.5 g/dl (32.0-36.5); MEAN CORPUSCULAR VOLUME 97.2 fl (80.0-96.0); MONO # 0.8 10^3/uL (0.0-0.8); MONO % 6.8 % (2.0-8.0); NEUTROPHILS # 9.6 10^3/uL (1.5-8.5); NEUTROPHILS % 81.2 % (36.0-66.0); PLATELET COUNT, AUTOMATED 261 10^3/uL (150-450); RED BLOOD COUNT 3.94 10^6/uL (4.00-5.40); WHITE BLOOD COUNT 11.8 10^3/uL (4.0-10.0)
[2022-05-04] MEDS ORDERED: NS 500 ML IV ONE (13:55)
[2022-05-04 14:15] LABS: BILIRUBIN,DIRECT 0.1 MG/DL (<0.4)
[2022-05-04 14:16] LABS: ALBUMIN 3.5 G/DL (3.2-5.2); ALKALINE PHOSPHATASE 70 U/L (46-116); ALT/SGPT 16 U/L (7.0-40); AST/SGOT 27 U/L (<34); BILIRUBIN,TOTAL 0.4 MG/DL (0.3-1.2); BLOOD UREA NITROGEN 18 MG/DL (9-23); CALCIUM LEVEL 9.1 MG/DL (8.3-10.6); CARBON DIOXIDE LEVEL 27 MMOL/L (20-31); CHLORIDE LEVEL 105 MMOL/L (98-107); CK-MB VALUE MASS 1.2 NG/ML (<3.6); CPK CREATINE PHOSPHOKINASE 70 U/L (34-145); CREATININE FOR GFR 0.93 MG/DL (0.55-1.30); GLOMERULAR FILTRATION RATE > 60.0 (>39); GLUCOSE, FASTING 91 MG/DL (74-106); MB/CK RELATIVE INDEX 1.71 (< OR =4); POTASSIUM SERUM 4.4 MMOL/L (3.5-5.1); SODIUM LEVEL 141 MMOL/L (136-145); TOTAL PROTEIN 6.7 G/DL (5.7-8.2)
[2022-05-04 14:17] LABS: THYROID STIMULATING HORMONE 1.452 uIU/ML (0.55-4.78)
[2022-05-04] MEDS ORDERED: NS 1,000 ML IV ONE (14:55)
[2022-05-04] MEDS ORDERED: NS 1,000 ML IV SCH (15:00)
[2022-05-04] MEDS ORDERED: ONDANSETRON 4MG 2ML VIAL IV PRN (15:00)
[2022-05-04] MEDS ORDERED: MECLIZINE 25 MG TABLET PO PRN (15:00)
[2022-05-04] MEDS: ACETAMINOPHEN TAB 650MG DOSE (2X325MG) PO PRN (15:37)
[2022-05-04] MEDS ORDERED: amLODIPine 5 MG TAB PO SCH (16:35)
[2022-05-04 16:36] LABS: HEMOGLOBIN 11.6 g/dl (12.0-15.5); MEAN CORPUSCULAR HEMOGLOBIN 30.2 pg (27.0-33.0); MEAN CORPUSCULAR HGB CONC 31.4 g/dl (32.0-36.5); MEAN CORPUSCULAR VOLUME 96.4 fl (80.0-96.0); PLATELET COUNT, AUTOMATED 255 10^3/uL (150-450); RED BLOOD COUNT 3.84 10^6/uL (4.00-5.40); WHITE BLOOD COUNT 12.6 10^3/uL (4.0-10.0)
[2022-05-04] MEDS ORDERED: PERCOCET 5MG/325MG TAB PO PRN ×2 (16:55)
[2022-05-04] MEDS ORDERED: MORPHINE 4 MG/ML 1ML VIAL IV PRN (16:55)
[2022-05-04] MEDS ORDERED: MIRALAX *UNIT DOSE* 17GM PACKET PO PRN (17:00)
[2022-05-04] MEDS ORDERED: SENOKOT S TAB PO PRN (17:00)
[2022-05-04] MEDS ORDERED: BISACODYL 10MG SUPP PR PRN (17:00)
[2022-05-04] MEDS ORDERED: MOM 30ML SUSPENSION UDC PO PRN (17:00)
[2022-05-04 18:00] VITALS: BP 163/62
[2022-05-04] MEDS ORDERED: cloNIDine 0.1MG TABLET PO SCH (18:00)
[2022-05-04] MEDS ORDERED: OMEG1CAP85 PO (18:01)
[2022-05-04] MEDS ORDERED: SENN-80 PO (18:04)
[2022-05-04] MEDS ORDERED: HOME MED LIST COMPLETE! XX SCH (18:05)
[2022-05-04] MEDS: CARVedilol 12.5 MG TAB PO SCH (21:00)
[2022-05-04 21:02] VITALS: BP_SYST 103; BP_SYST 96; BP_DIAS 56; BP_DIAS 72
[2022-05-04] MEDS: AUGMENTIN 875 MG TAB PO SCH (22:17)
[2022-05-05 05:54] LABS: BASO # 0.1 10^3/uL (0.0-0.2); BASO % 0.7 % (0.0-1.0); EOS # 0.2 10^3/uL (0.0-0.5); EOS % 3.5 % (0.0-3.0); HEMATOCRIT 30.9 % (36.0-47.0); HEMOGLOBIN 9.7 g/dl (12.0-15.5); LYMPH # 1.9 10^3/uL (1.5-5.0); LYMPH % 27.4 % (24.0-44.0); MEAN CORPUSCULAR HEMOGLOBIN 30.7 pg (27.0-33.0); MEAN CORPUSCULAR HGB CONC 31.4 g/dl (32.0-36.5); MEAN CORPUSCULAR VOLUME 97.8 fl (80.0-96.0); MONO # 0.7 10^3/uL (0.0-0.8); MONO % 10.8 % (2.0-8.0); NEUTROPHILS # 3.9 10^3/uL (1.5-8.5); NEUTROPHILS % 57.3 % (36.0-66.0); PLATELET COUNT, AUTOMATED 223 10^3/uL (150-450); RED BLOOD COUNT 3.16 10^6/uL (4.00-5.40); WHITE BLOOD COUNT 6.8 10^3/uL (4.0-10.0)
[2022-05-05] MEDS ORDERED: LEVOTHYROXINE 100MCG TABLET (0.1MG) PO SCH (06:00)
[2022-05-05 06:11] VITALS: BP 108/56
[2022-05-05 06:18] LABS: CALCIUM LEVEL 8.6 MG/DL (8.3-10.6); CREATININE FOR GFR 1.16 MG/DL (0.55-1.30); GLOMERULAR FILTRATION RATE 48.4 (>39); POTASSIUM SERUM 4.3 MMOL/L (3.5-5.1)
[2022-05-05] MEDS ORDERED: SELF1KIT MC (07:23)
[2022-05-05] MEDS ORDERED: LISI10TA22 PO (07:23)
[2022-05-05] MEDS: AUGMENTIN 875 MG TAB PO SCH (08:58)
[2022-05-05] MEDS: ACETAMINOPHEN TAB 650MG DOSE (2X325MG) PO PRN (08:58)
[2022-05-05 08:59] VITALS: BP 148/67
[2022-05-05] MEDS: CARVedilol 12.5 MG TAB PO SCH (08:59)
[2022-05-05] MEDS ORDERED: amLODIPine 5 MG TAB PO SCH (09:00)
[2022-05-05] MEDS ORDERED: LORATADINE 10 MG TAB PO SCH (09:00)
[2022-05-05 14:00] VITALS: BP 109/48
== END 2022-05-05 15:50 | disposition home or self-care (01) ==
LOC: M ED 11:32 → EDBD 11:32 → M ED INP 11:33 → ENRESERV 16:17 → M MS5PR 17:55 → UNDODISOB 05-05 10:50
PROVIDERS: ADMIT General Practice; ATTEND General Practice
DX: I95.1 Orthostatic hypotension (principal); S02.2XXA Fracture of nasal bones, initial encounter for closed fracture; S00.11XA Contusion of right eyelid and periocular area, initial encounter; S00.12XA Contusion of left eyelid and periocular area, initial encounter; W18.30XA Fall on same level, unspecified, initial encounter; Y92.000 Kitchen of unspecified non-institutional (private) residence as the place of occurrence of the external cause; I10 Essential (primary) hypertension; E78.5 Hyperlipidemia, unspecified; E03.9 Hypothyroidism, unspecified; J44.9 Chronic obstructive pulmonary disease, unspecified; K21.9 Gastro-esophageal reflux disease without esophagitis; Z87.440 Personal history of urinary (tract) infections; Z87.442 Personal history of urinary calculi; Z86.19 Personal history of other infectious and parasitic diseases; M48.00 Spinal stenosis, site unspecified; Z87.42 Personal history of other diseases of the female genital tract; Z79.899 Other long term (current) drug therapy; Z79.890 Hormone replacement therapy; Z79.82 Long term (current) use of aspirin
CPT/HCPCS: 36415; 70450; 70486; 71046; 72125; 80047; 80048; 80076; 82550; 82553; 84443; 84484; 85025; 85027; 93005; 97161; 97530; 99285; G0378

== ENCOUNTER → 2022-06-02 | Outpatient (REF) | payer MEDICARE, MEDICAID ==
[~2022-06-02] MED LIST changes: +LISI10TA22 PO; +OMEG1CAP85 PO; +SELF1KIT MC; +SENN-80 PO
[2022-06-02 23:09] LABS: FERRITIN 36.4 NG/ML (7.3-270.7)
[2022-06-02 23:42] LABS: PERCENT SATURATION 23.9 % (13.2-45.0)
== END ==
LOC: M LAB REF 16:15
PROVIDERS: ATTEND Internal Medicine
DX: D50.9 Iron deficiency anemia, unspecified (principal); M62.81 Muscle weakness (generalized)

== ENCOUNTER 2022-08-30 11:41 | Emergency (ER) | payer MEDICARE, MEDICAID ==
[~2022-08-30] VITALS: Ht 165.1 cm; Wt 86.0 kg
[~2022-08-30 11:41] MED LIST changes: +SENN-186 PO; -SENN-80 PO
[2022-08-30] MEDS ORDERED: amLODIPine 5 MG TAB PO ONE (12:35)
[2022-08-30 12:57] VITALS: BP 174/82
[2022-08-30] MEDS ORDERED: VALS40TA9 PO (13:01)
[2022-08-30 13:08] LABS: BASO # 0.1 10^3/uL (0.0-0.2); BASO % 0.8 % (0.0-1.0); EOS # 0.2 10^3/uL (0.0-0.5); EOS % 2.7 % (0.0-3.0); HEMATOCRIT 37.5 % (36.0-47.0); HEMOGLOBIN 12.2 g/dl (12.0-15.5); LYMPH # 1.9 10^3/uL (1.5-5.0); LYMPH % 22.5 % (24.0-44.0); MEAN CORPUSCULAR HEMOGLOBIN 30.6 pg (27.0-33.0); MEAN CORPUSCULAR HGB CONC 32.5 g/dl (32.0-36.5); MONO # 0.8 10^3/uL (0.0-0.8); MONO % 9.6 % (2.0-8.0); NEUTROPHILS # 5.4 10^3/uL (1.5-8.5); PLATELET COUNT, AUTOMATED 252 10^3/uL (150-450); RED BLOOD COUNT 3.99 10^6/uL (4.00-5.40); WHITE BLOOD COUNT 8.4 10^3/uL (4.0-10.0)
[2022-08-30 14:32] LABS: CK-MB VALUE MASS < 1.0 NG/ML (<3.6)
[2022-08-30 14:35] LABS: THYROID STIMULATING HORMONE 4.606 uIU/ML (0.55-4.78)
[2022-08-30 14:36] LABS: FREE T4 1.22 NG/DL (0.89-1.76)
[2022-08-30 14:40] LABS: ALBUMIN 3.6 G/DL (3.2-5.2); ALKALINE PHOSPHATASE 69 U/L (46-116); ALT/SGPT 21 U/L (7.0-40); AST/SGOT 24 U/L (<34); BILIRUBIN,DIRECT < 0.1 MG/DL (<0.4); BILIRUBIN,TOTAL 0.3 MG/DL (0.3-1.2); BLOOD UREA NITROGEN 23 MG/DL (9-23); CALCIUM LEVEL 8.7 MG/DL (8.3-10.6); CARBON DIOXIDE LEVEL 31 MMOL/L (20-31); CHLORIDE LEVEL 106 MMOL/L (98-107); CPK CREATINE PHOSPHOKINASE 60 U/L (34-145); CREATININE FOR GFR 1.07 MG/DL (0.55-1.30); GLOMERULAR FILTRATION RATE 52.9 (>39); GLUCOSE, FASTING 83 MG/DL (74-106); MB/CK RELATIVE INDEX 1.66 (< OR =4); POTASSIUM SERUM 4.9 MMOL/L (3.5-5.1); SODIUM LEVEL 141 MMOL/L (136-145); TOTAL PROTEIN 6.2 G/DL (5.7-8.2)
[2022-08-30] MEDS ORDERED: LevoFLOXacin IV 750 MG in IV 1 EA IV ONE (14:50)
[2022-08-30 16:02] LABS: CK-MB VALUE MASS < 1.0 NG/ML (<3.6)
[2022-08-30 16:06] LABS: CPK CREATINE PHOSPHOKINASE 64 U/L (34-145); MB/CK RELATIVE INDEX 1.56 (< OR =4)
[2022-08-30 16:32] VITALS: BP 180/90
== END 2022-08-30 17:09 | disposition home or self-care (01) ==
LOC: M ED 11:41 → EDBD 11:41 → M ED 17:09
DX: I10 Essential (primary) hypertension (principal); R53.1 Weakness; R94.31 Abnormal electrocardiogram [ECG] [EKG]; G31.9 Degenerative disease of nervous system, unspecified; I51.7 Cardiomegaly; G60.9 Hereditary and idiopathic neuropathy, unspecified; I70.90 Unspecified atherosclerosis; E03.9 Hypothyroidism, unspecified; J44.9 Chronic obstructive pulmonary disease, unspecified; R04.0 Epistaxis; K21.9 Gastro-esophageal reflux disease without esophagitis; Z87.42 Personal history of other diseases of the female genital tract; M48.00 Spinal stenosis, site unspecified; Z99.89 Dependence on other enabling machines and devices; Z79.890 Hormone replacement therapy; Z79.899 Other long term (current) drug therapy

== ENCOUNTER → 2022-11-29 | Outpatient (REF) | payer MEDICARE, MEDICAID ==
[~2022-11-29] MED LIST changes: +PERI0.126 PO; +SENN-111 PO; -SENN18TA PO; +VALS40TA9 PO
[2022-11-29 17:34] LABS: PERCENT SATURATION 23.8 % (13.2-45.0)
[2022-11-29 17:36] LABS: FERRITIN 82.7 NG/ML (7.3-270.7)
== END ==
LOC: M LAB REF 16:19
PROVIDERS: ATTEND Internal Medicine
DX: D50.9 Iron deficiency anemia, unspecified (principal)

== ENCOUNTER → 2023-06-02 | Outpatient (REF) | payer MEDICARE, MEDICAID ==
[~2023-06-02] MED LIST changes: +LORA-1041 PO; -LORA-674 PO
[2023-06-02 18:40] LABS: PERCENT SATURATION 29.2 % (13.2-45.0)
[2023-06-02 18:41] LABS: FERRITIN 61.4 NG/ML (7.3-270.7)
== END ==
LOC: M LAB REF 17:16
PROVIDERS: ATTEND Internal Medicine
DX: D50.9 Iron deficiency anemia, unspecified (principal)

== ENCOUNTER → 2023-07-20 | Outpatient (CLI) | payer MEDICARE, MEDICAID | LOC: M PLAIMG 09:00 | PROVIDERS: ATTEND Internal Medicine | DX: R29.810 Facial weakness (principal) ==

== ENCOUNTER → 2024-06-21 | Outpatient (CLI) | payer MEDICARE, MEDICAID ==
[~2024-06-21] MED LIST changes: +OMEG-28 PO; -OMEG1CAP85 PO; +ROSU5TAB49 PO; -ROSU5TAB5 PO; -SENN-111 PO; +SENN-165 PO
== END ==
LOC: M RAD 14:49
PROVIDERS: ATTEND Internal Medicine
DX: M62.81 Muscle weakness (generalized) (principal)

== ENCOUNTER → 2024-08-22 | Outpatient (REF) | payer MEDICARE, MEDICAID ==
[~2024-08-22] MED LIST changes: -FLOM0.4C39 PO; +TAMS-18 PO
[2024-08-22 17:18] LABS: PERCENT SATURATION 28.1 % (13.2-45.0)
[2024-08-22 17:22] LABS: FERRITIN 141.7 NG/ML (7.3-270.7)
== END ==
LOC: M LAB REF 16:41
PROVIDERS: ATTEND Internal Medicine
DX: N18.32 Chronic kidney disease, stage 3b (principal)

== ENCOUNTER → 2025-02-05 | Outpatient (REF) | payer MEDICARE, MEDICAID ==
[2025-02-05 19:50] LABS: IRON (FE) 40.0 UG/DL (50-170)
[2025-02-05 19:51] LABS: PERCENT SATURATION 18.5 % (13.2-45.0)
[2025-02-05 20:23] LABS: VITAMIN B12 LEVEL 694.0 PG/ML (211-911)
== END ==
LOC: M LAB REF 17:54
PROVIDERS: ATTEND Internal Medicine
DX: D50.9 Iron deficiency anemia, unspecified (principal)

== ENCOUNTER → 2025-03-18 | Outpatient (CLI) | payer MEDICARE, MEDICAID ==
[~2025-03-18] MED LIST changes: +BARIUM SULFATE 700 MG TABLET As Ordered ONE; +E-Z-PAQUE 96% w/w SUSP 176 GM BTL As Ordered ONE; +VARIBAR NECTAR 40% w/v 240ML SUSP BTL As Ordered ONE; +VARIBAR PUDDING 40% w/v 230ML TUBE As Ordered ONE
== END ==
LOC: M RAD 11:55
PROVIDERS: ATTEND Internal Medicine
DX: R13.10 Dysphagia, unspecified (principal)

== ENCOUNTER 2025-04-04 10:14 | Outpatient (RCR) | payer MEDICARE, MEDICAID ==
[~2025-04-04 10:14] MED LIST changes: -BARIUM SULFATE 700 MG TABLET As Ordered ONE; -E-Z-PAQUE 96% w/w SUSP 176 GM BTL As Ordered ONE; -VARIBAR NECTAR 40% w/v 240ML SUSP BTL As Ordered ONE; -VARIBAR PUDDING 40% w/v 230ML TUBE As Ordered ONE
[2025-04-10] MEDS ORDERED: FERR325T3 PO (17:20)
[2025-04-10] MEDS ORDERED: ASPI81TA26 PO (17:20)
[2025-04-10] MEDS ORDERED: CALC600T60 PO (17:20)
[2025-04-10] MEDS ORDERED: PROP40TA62 PO (17:20)
[2025-04-10] MEDS ORDERED: LEXA1TAB PO (17:20)
[2025-04-10] MEDS ORDERED: DOCU100C16 PO (17:20)
[2025-04-10] MEDS ORDERED: HYDR-643 PO (17:20)
[2025-04-14] MEDS ORDERED: LEVO1TAB39 PO (08:23)
== END 2025-04-30 ==
LOC: M ST 10:14
PROVIDERS: ATTEND Internal Medicine
DX: R13.10 Dysphagia, unspecified (principal)

== ENCOUNTER 2025-04-10 12:41 | Inpatient (IN) | payer MEDICARE, MEDICAID ==
[~2025-04-10] VITALS: Ht 170.2 cm; Wt 69.5 kg
[2025-04-10 13:22] LABS: BASO # 0.1 10^3/uL (0.0-0.2); BASO % 0.4 % (0.0-1.0); EOS # 0.0 10^3/uL (0.0-0.5); EOS % 0.0 % (0.0-3.0); LYMPH # 1.5 10^3/uL (1.5-5.0); LYMPH % 7.4 % (24.0-44.0); MONO # 1.8 10^3/uL (0.0-0.8); MONO % 8.6 % (2.0-8.0); NEUTROPHILS # 16.7 10^3/uL (1.5-8.5); NEUTROPHILS % 82.3 % (36.0-66.0); PLATELET COUNT, AUTOMATED 505 10^3/uL (150-450)
[2025-04-10 13:47] LABS: ALT/SGPT 27 U/L (7.0-40); AST/SGOT 50 U/L (<34); CALCIUM LEVEL 9.2 MG/DL (8.3-10.6); CARBON DIOXIDE LEVEL 27 MMOL/L (20-31); CHLORIDE LEVEL 104 MMOL/L (98-107); CREATININE FOR GFR 0.93 MG/DL (0.55-1.30); GLOMERULAR FILTRATION RATE 62.5 (>39); POTASSIUM SERUM 4.9 MMOL/L (3.5-5.1); SODIUM LEVEL 143 MMOL/L (136-145)
[2025-04-10 13:58] LABS: RSV AMPLIFICATION NEGATIVE (NEGATIVE)
[2025-04-10 14:45] LABS: KETONE, URINE AUTO RFX NEGATIVE (NEGATIVE); MUCUS, URINE RFX LARGE (NEGATIVE); RBC, URINE AUTO RFX TNTC /HPF (0-3); SQUAM EPITHELIAL CELL UR AURFX 9 /HPF (0-6); TRANSITIONAL EPITHELIAL AU RFX 1 /HPF
[2025-04-10 14:48] LABS: LEUKOCYTE ESTERASE UR AUTO RFX 2+ (NEGATIVE); NITRITE, URINE AUTO RFX POSITIVE (NEGATIVE); WBC, URINE AUTO RFX 155 /HPF (0-3)
[2025-04-10] MEDS: cefTRIAXone SOD 2 GM in DEXTROSE 5% (D5W) ADV/MINI-BAG 50 ML IV ONE (15:05)
[2025-04-10] MEDS: NS (Normal Saline) 0.9% 1,000 ML IV ONE (15:45)
[2025-04-10] MEDS ORDERED: HYDR-643 PO (17:20)
[2025-04-10] MEDS ORDERED: CALC600T60 PO (17:20)
[2025-04-10] MEDS ORDERED: DOCU100C16 PO (17:20)
[2025-04-10] MEDS ORDERED: HOME MED LIST COMPLETE! XX SCH (17:20)
[2025-04-10] MEDS ORDERED: PROP40TA62 PO (17:20)
[2025-04-10] MEDS ORDERED: LEXA1TAB PO (17:20)
[2025-04-10] MEDS ORDERED: FERR325T3 PO (17:20)
[2025-04-10] MEDS ORDERED: ASPI81TA26 PO (17:20)
[2025-04-10 17:30] VITALS: BP 182/81; TEMP 97.9; O2SAT 92
[2025-04-10 18:21] VITALS: BP 162/82
[2025-04-10 20:26] VITALS: BP 145/66; TEMP 98.4; O2SAT 96
[2025-04-11 03:53] VITALS: BP 120/60; TEMP 97.7; O2SAT 93
[2025-04-11] MEDS: LEVOTHYROXINE 100 MCG TABLET (0.1 MG) PO SCH (05:57)
[2025-04-11] MEDS: ACETAMINOPHEN 325 MG TAB PO PRN (06:02)
[2025-04-11] MEDS: MULTIVITAMINS/MINERALS THERAP 1 TAB PO SCH (08:22)
[2025-04-11] MEDS: ASCORBIC ACID 500 MG TAB PO SCH (08:22)
[2025-04-11] MEDS: OYSTER SHELL CALCIUM 500 MG TAB PO SCH (08:22)
[2025-04-11] MEDS: ESCITALOPRAM OXALATE 10 MG TABLET PO SCH (08:22)
[2025-04-11] MEDS: PROPRANOLOL 20 MG TAB PO SCH (08:23)
[2025-04-11] MEDS ORDERED: VALSARTAN 40MG TABLET PO SCH (09:00)
[2025-04-11] MEDS ORDERED: LORATADINE 10 MG TAB PO SCH (09:00)
[2025-04-11] MEDS ORDERED: amLODIPine 5 MG TAB PO SCH (09:00)
[2025-04-11] MEDS ORDERED: OMEGA-3 1000 MG CAPSULE PO SCH (09:00)
[2025-04-11 12:00] VITALS: BP 118/55; TEMP 97.6; O2SAT 95
[2025-04-11 20:03] VITALS: BP 142/78; TEMP 98; O2SAT 95
[2025-04-12 03:51] VITALS: BP 154/73; TEMP 97.7; O2SAT 94
[2025-04-12 10:14] LABS: BASO # 0.1 10^3/uL (0.0-0.2); BASO % 0.7 % (0.0-1.0); EOS # 0.2 10^3/uL (0.0-0.5); EOS % 2.0 % (0.0-3.0); LYMPH # 1.3 10^3/uL (1.5-5.0); LYMPH % 10.6 % (24.0-44.0); MONO # 1.0 10^3/uL (0.0-0.8); MONO % 8.2 % (2.0-8.0); NEUTROPHILS # 9.4 10^3/uL (1.5-8.5); NEUTROPHILS % 77.4 % (36.0-66.0); PLATELET COUNT, AUTOMATED 444 10^3/uL (150-450)
[2025-04-12 10:44] LABS: CALCIUM LEVEL 8.3 MG/DL (8.3-10.6); CARBON DIOXIDE LEVEL 29.0 MMOL/L (20-31); CHLORIDE LEVEL 106.0 MMOL/L (98-107); CREATININE FOR GFR 0.87 MG/DL (0.55-1.30); GLOMERULAR FILTRATION RATE 67.7 (>39); POTASSIUM SERUM 4.1 MMOL/L (3.5-5.1); SODIUM LEVEL 143.0 MMOL/L (136-145)
[2025-04-12 11:51] VITALS: BP 146/67; TEMP 98; O2SAT 96
[2025-04-12] MEDS: NS 0.45% 1,000 ML IV ONE (17:45)
[2025-04-12] MEDS: NS 0.45% 1,000 ML IV SCH (18:33)
[2025-04-12 19:45] VITALS: BP 133/70; TEMP 98.7; O2SAT 96
[2025-04-13 03:31] VITALS: BP 98/61; TEMP 98.3; O2SAT 97
[2025-04-13 07:43] VITALS: BP 130/58
[2025-04-13 08:52] LABS: BASO # 0.1 10^3/uL (0.0-0.2); BASO % 0.6 % (0.0-1.0); EOS # 0.3 10^3/uL (0.0-0.5); EOS % 2.6 % (0.0-3.0); LYMPH # 1.5 10^3/uL (1.5-5.0); LYMPH % 12.4 % (24.0-44.0); MONO # 1.0 10^3/uL (0.0-0.8); MONO % 8.4 % (2.0-8.0); NEUTROPHILS # 8.9 10^3/uL (1.5-8.5); NEUTROPHILS % 74.8 % (36.0-66.0); PLATELET COUNT, AUTOMATED 448 10^3/uL (150-450)
[2025-04-13 10:38] LABS: CALCIUM LEVEL 8.2 MG/DL (8.3-10.6); CARBON DIOXIDE LEVEL 26.0 MMOL/L (20-31); CHLORIDE LEVEL 106.0 MMOL/L (98-107); CREATININE FOR GFR 0.86 MG/DL (0.55-1.30); GLOMERULAR FILTRATION RATE 68.7 (>39); POTASSIUM SERUM 4.1 MMOL/L (3.5-5.1); SODIUM LEVEL 141.0 MMOL/L (136-145)
[2025-04-13] MEDS: D5W/0.2% SODIUM CHLORIDE 1,000 ML IV ONE (10:52)
[2025-04-13 12:02] VITALS: BP 146/67; TEMP 98.2; O2SAT 99
[2025-04-13 20:35] VITALS: BP 159/70; TEMP 98.1; O2SAT 96
[2025-04-14 04:36] VITALS: BP 129/64; TEMP 97.7; O2SAT 96
[2025-04-14 07:52] LABS: BASO # 0.1 10^3/uL (0.0-0.2); BASO % 0.6 % (0.0-1.0); EOS # 0.3 10^3/uL (0.0-0.5); EOS % 3.0 % (0.0-3.0); LYMPH # 1.8 10^3/uL (1.5-5.0); LYMPH % 16.3 % (24.0-44.0); MONO # 0.9 10^3/uL (0.0-0.8); MONO % 8.4 % (2.0-8.0); NEUTROPHILS # 7.8 10^3/uL (1.5-8.5); NEUTROPHILS % 70.2 % (36.0-66.0); PLATELET COUNT, AUTOMATED 444 10^3/uL (150-450)
[2025-04-14 08:01] LABS: CALCIUM LEVEL 8.5 MG/DL (8.3-10.6); CARBON DIOXIDE LEVEL 28.0 MMOL/L (20-31); CHLORIDE LEVEL 104.0 MMOL/L (98-107); CREATININE FOR GFR 0.96 MG/DL (0.55-1.30); GLOMERULAR FILTRATION RATE 60.2 (>39); POTASSIUM SERUM 4.1 MMOL/L (3.5-5.1); SODIUM LEVEL 139.0 MMOL/L (136-145)
[2025-04-14] MEDS ORDERED: LEVO1TAB39 PO (08:23)
[2025-04-14 08:24] VITALS: BP 127/62
[2025-04-14 12:00] VITALS: BP 109/57; TEMP 97.4; O2SAT 96
== END 2025-04-14 15:49 | disposition home health service (06) | DRG 689 ==
LOC: M ED 12:41 → EDBD 12:41 → M ED INP 15:21 → M MSPAV 17:30
PROVIDERS: ADMIT General Practice; ATTEND General Practice
DX: N39.0 Urinary tract infection, site not specified (principal); R53.2 Functional quadriplegia; G93.41 Metabolic encephalopathy; I10 Essential (primary) hypertension; E78.5 Hyperlipidemia, unspecified; E03.9 Hypothyroidism, unspecified; M48.00 Spinal stenosis, site unspecified; J44.9 Chronic obstructive pulmonary disease, unspecified; K21.9 Gastro-esophageal reflux disease without esophagitis; F03.B0 Unspecified dementia, moderate, without behavioral disturbance, psychotic disturbance, mood disturbance, and anxiety; D75.838 Other thrombocytosis; R62.7 Adult failure to thrive; E88.09 Other disorders of plasma-protein metabolism, not elsewhere classified; R53.1 Weakness; E86.0 Dehydration; R13.10 Dysphagia, unspecified; D64.9 Anemia, unspecified; Z66 Do not resuscitate; Z74.01 Bed confinement status; Z99.3 Dependence on wheelchair; Z79.890 Hormone replacement therapy; Z79.899 Other long term (current) drug therapy